=== PATIENT | male | born 1960 | race Caucasian/White ===

== ENCOUNTER → 2018-08-23 | Outpatient (CLI) | payer OTHER, MEDICAID ==
[~2018-08-23] MED LIST: BACTROBAN15 GM TP; CIPROFLOXACIN500 M1 PO; DEPAKENE250 MG; DEPAKENE250 MG PO; DILANTIN100 MG; DILANTIN100 MG PO; DOXYCYCLINE 10100 M1 PO; K-DUR10 MEQ PO; KETACONAZOLE TOP; KLOR-CON 1010 MEQ; LAMICTAL 25 MG25 M1; LAMOTRIGINE25 M2 PO; LEVOTHYROXIN0.125 M1; LEVOTHYROXIN0.125 M1 PO; LISINOPRIL-HCT1 EAC2; LISINOPRIL-HCT1 EAC2 PO; OXYBUTYNIN 5 MG5 M1; OXYBUTYNIN 5 MG5 M1 PO; PRIMIDONE50 MG; PRIMIDONE50 MG PO; PYRIDIUM100 M1 PO; VITAMIN B-12500 MCG; VITAMIN B-12500 MCG PO; VYTORIN 10-801 EACH; VYTORIN 10-801 EACH PO; [UNRECOGNIZED DRUG - OTHER]; [UNRECOGNIZED DRUG - OTHER] PO
== END ==
LOC: M.MRI 08-15 14:30
DX: M79.602 Pain in left arm (principal)

== ENCOUNTER 2019-05-15 12:44 | Emergency (ER) | payer OTHER, MEDICAID ==
[~2019-05-15] VITALS: Ht 170.2 cm; Wt 117.9 kg
[2019-05-15] MEDS ORDERED: SIMVASTATIN80 MG PO (12:53)
[2019-05-15 13:21] LABS: ABSOLUTE BASOPHILS 0.1 thou/uL (0.0-0.2); ABSOLUTE MONOCYTES 0.8 thou/uL (0.0-1.2); BASOPHILS 1.3 %; EOSINOPHILS 0.3 %; HEMATOCRIT 37.1 % (42.0-52.0); HEMOGLOBIN 13.2 gm/dL (14.0-18.0); LYMPHOCYTES 20.4 %; MCH 30.1 pg (26.0-34.0); MCHC 35.6 g/dL (28.0-37.0); MCV 84.6 fL (80.0-100.0); MONOCYTES 16.7 %; MPV 8.2 fl. (7.2-11.1); NUCLEATED RBCS 0 /100WBC; PLATELET COUNT* 132 thou/uL (150-400); POLYS 61.3 %; RBC 4.39 mil/uL (4.50-6.00); RDW-CV 13.2 % (10.5-14.5); WBC 4.9 thou/uL (4.0-11.0)
[2019-05-15 13:29] LABS: CREATININE 1.2 mg/dL (0.6-1.3); POTASSIUM 3.5 mmol/L (3.5-5.1)
[2019-05-15 13:34] LABS: ALBUMIN 3.1 g/dL (3.4-5.0); TOTAL BILIRUBIN 0.4 mg/dL (<0.1-1.0); TOTAL PROTEIN 6.6 g/dL (6.4-8.2)
[2019-05-15 13:45] LABS: URINE BILIRUBIN NEGATIVE (Negative); URINE BLOOD NEGATIVE (Negative); URINE CLARITY CLEAR; URINE COLOR YELLOW; URINE GLUCOSE-RANDOM NEGATIVE (Negative); URINE KETONES NEGATIVE (Negative); URINE LEUKOCYTES-REFLEX NEGATIVE (Negative); URINE NITRITE-REFLEX NEGATIVE (Negative); URINE PROTEIN NEGATIVE (Negative); URINE UROBILINOGEN 0.2 E.U./dl (0.2-1.0)
--- NOTE | 2019-05-15 14:35 | EKG ---
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1960 Requested By: Dalton Viera Order Number: [id number] MD: Carlos Blakely Measurements Intervals [place] Rate: 76 P: 59 [place]: 148 QRS: 9 QRSD: 83 T: 76 QT: 369 QTc: 415 Interpretive Statements Sinus rhythm Abnormal R-wave progression, early transition Nonspecific T abnormalities, lateral leads Compared to ECG 03/04/2009 11:41:57 T-wave abnormality now present Electronically Signed On 05-15-2019 14:35:10 PROGRAM FACILITATOR by Carlos Blakely [email or web address] <ELECTRONICALLY SIGNED> By: Carlos Blakely MD, [facility] 05/15/19 1435 15 15 Carlos Blakely MD, FAC /EPI
[2019-05-15] MEDS ORDERED: MECLIZINE HCL25 M1 PO (16:16)
[2019-05-15 16:29] VITALS: BP 112/66
== END 2019-05-15 16:30 | disposition home or self-care (01) ==
LOC: M.ERS 12:44
PROVIDERS: Physician Assistant
DX: R42 Dizziness and giddiness (principal); I10 Essential (primary) hypertension; E78.5 Hyperlipidemia, unspecified; E03.9 Hypothyroidism, unspecified; Z86.73 Personal history of transient ischemic attack (TIA), and cerebral infarction without residual deficits

== ENCOUNTER 2019-05-22 21:34 | Inpatient (IN) | payer OTHER, MEDICAID ==
[~2019-05-22] VITALS: Ht 170.2 cm; Wt 117.9 kg
[~2019-05-22 21:34] MED LIST changes: +MECLIZINE HCL25 M1 PO; +SIMVASTATIN80 MG PO
[2019-05-22 21:35] VITALS: BP 110/63
[2019-05-22 22:57] LABS: ABSOLUTE NEUTROPHILS 3.2 thou/uL (1.6-8.1); BASOPHILS 0.9 %; EOSINOPHILS 0.2 %; HEMATOCRIT 37.8 % (42.0-52.0); HEMOGLOBIN 13.4 gm/dL (14.0-18.0); LYMPHOCYTES 19.1 %; MCH 30.2 pg (26.0-34.0); MCHC 35.4 g/dL (28.0-37.0); MCV 85.3 fL (80.0-100.0); MONOCYTES 18.6 %; MPV 8.2 fl. (7.2-11.1); NUCLEATED RBCS 0 /100WBC; PLATELET COUNT* 128 thou/uL (150-400); POLYS 61.2 %; RBC 4.43 mil/uL (4.50-6.00); RDW-CV 13.2 % (10.5-14.5); WBC 5.2 thou/uL (4.0-11.0)
[2019-05-22 23:05] LABS: CREATININE 1.3 mg/dL (0.6-1.3); POTASSIUM 3.6 mmol/L (3.5-5.1)
[2019-05-22 23:10] LABS: ALBUMIN 3.2 g/dL (3.4-5.0); TOTAL BILIRUBIN 0.4 mg/dL (<0.1-1.0); TOTAL PROTEIN 7.1 g/dL (6.4-8.2)
[2019-05-22 23:15] LABS: URINE BILIRUBIN NEGATIVE (Negative); URINE BLOOD NEGATIVE (Negative); URINE CLARITY CLEAR; URINE COLOR YELLOW; URINE GLUCOSE-RANDOM NEGATIVE (Negative); URINE KETONES NEGATIVE (Negative); URINE LEUKOCYTES-REFLEX NEGATIVE (Negative); URINE NITRITE-REFLEX NEGATIVE (Negative); URINE PROTEIN NEGATIVE (Negative)
[2019-05-23] VITALS (7 sets, daily range): BP systolic 103–137; BP diastolic 56–66
[2019-05-23 05:43] LABS: ALBUMIN 2.9 g/dL (3.4-5.0); CALCIUM 8.2 mg/dL (8.5-10.1); CREATININE 1.1 mg/dL (0.6-1.3); POTASSIUM 3.6 mmol/L (3.5-5.1); TOTAL BILIRUBIN 0.4 mg/dL (<0.1-1.0); TOTAL PROTEIN 6.7 g/dL (6.4-8.2)
--- NOTE | 2019-05-23 06:19 | NUR ---
PATIENT ARRIVED TO UNIT AT APPROX 0100. ALERT AND OREINTED X4. ADMISSION HISTORY AND ASSESSMENT COMPLETED AND CHARTED. VSS ON ROOM AIR. NO COMPLAINTS THROUGHOUT THE NIGHT. FLUIDS INFUSED ORDERED. PATIENT ORDERED BEDREST FOR UNSTEADY GAIT, USING URINAL FROM THE BED. FALL PRECAUTIONS IN PLACE. CALL LIGHT WITHIN REACH. HOULRY ROUNDS COMPLETED. WILL CONTNUE TO MONITOR.
--- NOTE | 2019-05-23 11:51 | NUR ---
ASSUMED PT CARE AT 0800, AOX4, BEDREST, USES URINAL. PT MED SURG. PT DENIES PAIN. IVF INFUSSING ORDERED. VSS, AM ASSESSMENT CHARTED, HOURLY ROUNDING, WILL CONTINUE TO MONITOR.
--- NOTE | 2019-05-23 12:46 | NUR ---
Pt is A&O. Resides at home with his mom. Independent. No DME. Hx of [facility]. No hx of SNF. Goal is home at dc, Pt said he may need HH. Following.
--- NOTE | 2019-05-23 15:29 | NUR ---
PT TRANSFERRED TO ROOM 109, I AGREE WITH PREVIOUS ASSESSMENT. PT SETTLED INTO ROOM, ORIENTED TO CALL LIGHT, BED CONTROLS AND FALL PRECAUTIONS. PT DENIES FEELING DIZZY AT THIS TIME. IV FLUIDS HAVE BEEN DC'D AND HE IS NOW ON A 1000CC FLUID RESTRICTION. BED IS LOW AND LOCKED, BED ALARM SET AND PT INSTRUCTED TO CALL FOR HELP WHEN NEEDED.
[2019-05-24 03:17] LABS: HEMATOCRIT 36.8 % (42.0-52.0); HEMOGLOBIN 12.9 gm/dL (14.0-18.0); MCHC 35.1 g/dL (28.0-37.0); MCV 85.3 fL (80.0-100.0); MPV 8.7 fl. (7.2-11.1); RBC 4.31 mil/uL (4.50-6.00); RDW-CV 13.3 % (10.5-14.5); WBC 5.7 thou/uL (4.0-11.0)
[2019-05-24 03:20] LABS: CALCIUM 8.2 mg/dL (8.5-10.1)
--- NOTE | 2019-05-24 04:26 | NUR ---
PT SLEEPING THROUGH THE NIGHT. A&O, VSS ON RA. PT UP WITH MINIMUM ASSIST TO USE URINAL. FLUID RESTRICTION MAINTAINED. HOURLY ROUNDING COMPLETED. WILL CONTINUE TO MONITOR.
[2019-05-24 08:15] VITALS: BP 128/58
[2019-05-24 16:30] VITALS: BP 125/74
--- NOTE | 2019-05-24 18:04 | NUR ---
PATIENT ALERT AND ORIENTED X 4. FORGETFUL AT TIMES. VITAL SIGNS STABLE ON ROOM AIR. USING THE URINAL WITH ASSISTANCE. IV PATENT AND SALINE LOCKED. DENIES PAIN AND NAUSEA AT THIS TIME. FALL PRECAUTIONS IN PLACE AND BED ALARM ON. HOURLY ROUNDS MAINTAINED THROUGHOUT THE SHIFT. CALL LIGHT WITHIN REACH. NURSING WILL CONTINUE TO MONITOR.
[2019-05-24 20:34] VITALS: BP 116/67
[2019-05-25 04:48] LABS: CALCIUM 8.2 mg/dL (8.5-10.1); POTASSIUM 4.5 mmol/L (3.5-5.1)
--- NOTE | 2019-05-25 05:15 | NUR ---
SODIUM CURRENTLY 133. STILL ON FLUID RESTRICTION OF 1750 MLS. HE CAN STAND AT BEDSIDE TO USE URINAL. PATIENT SLEPT ALL NIGHT WITHOUT ANY ISSUES. PLAN IS TO STABILIZE SODIUM LEVELS. WILL CONTINUE TO FOLLOW PLAN OF CARE.
[2019-05-25 08:20] VITALS: BP 99/54
[2019-05-25 16:13] VITALS: BP 98/56
--- NOTE | 2019-05-25 17:26 | NUR ---
PT A&Ox4. VITALS STABLE. IV PATENT. UP STAND BY. DENIED PAIN. DENIED N/V. TOLERATING DIET. CALL LIGHT WITHIN REACH. WILL CONTINUE TO MONITOR.
[2019-05-25 20:18] VITALS: BP 119/63
[2019-05-26 03:50] LABS: CREATININE 1.1 mg/dL (0.6-1.3)
--- NOTE | 2019-05-26 05:45 | NUR ---
PATIENT WAS ABLE TO AMBULATE HALLWAYS BEFORE BED. DID NOT REPORT ANY PAIN OR NAUSEA. WAS ABLE TO SLEEP ALL NIGHT. TOOK ALL MEDS PRESCRIBED. WILL CONTINUE TO FOLLOW PLAN OF CARE.
[2019-05-26 08:03] VITALS: BP 121/71
[2019-05-26 10:26] VITALS: BP 121/71
--- NOTE | 2019-05-26 13:22 | NUR ---
PT DISCHARGED ABOUT 1310 TO HOME BY WHEELCHAIR WITH FRIEND AND NURSING STAFF. IV OUT. PT STABLE. NO PRESCRIPTIONS. PERSONAL ITEMS SENT WITH PT.
== END 2019-05-26 13:24 | disposition home or self-care (01) | DRG 149 ==
LOC: M.ERS 21:34 → M.TBA-ER 05-23 00:09 → M.2W 05-23 00:09 → M.ORTHSURG 05-23 15:16
PROVIDERS: Family Medicine; Personal Emergency Response Attendant; ADMIT Family Medicine
DX: H81.10 Benign paroxysmal vertigo, unspecified ear (principal); E87.1 Hypo-osmolality and hyponatremia; Z68.41 Body mass index [BMI] 40.0-44.9, adult; I69.354 Hemiplegia and hemiparesis following cerebral infarction affecting left non-dominant side; G40.909 Epilepsy, unspecified, not intractable, without status epilepticus; I10 Essential (primary) hypertension; G93.89 Other specified disorders of brain; F70 Mild intellectual disabilities; E03.9 Hypothyroidism, unspecified; R27.0 Ataxia, unspecified; E78.5 Hyperlipidemia, unspecified; E66.9 Obesity, unspecified; Z79.899 Other long term (current) drug therapy

== ENCOUNTER 2020-01-14 15:14 | Inpatient (IN) | payer OTHER, MEDICAID ==
[~2020-01-14] VITALS: Ht 170.2 cm; Wt 102.1 kg
[2020-01-14 15:23] VITALS: BP 99/46
[2020-01-14] MEDS ORDERED: VALPROIC ACID250 MG PO (15:26)
[2020-01-14] MEDS ORDERED: OXYBUTYNIN 5 MG5 M2 PO (15:27)
[2020-01-14] MEDS ORDERED: KLOR-CON 1010 MEQ PO (15:28)
[2020-01-14 16:14] LABS: ABSOLUTE BASOPHILS 0.1 thou/uL (0.0-0.2); ABSOLUTE LYMPHOCYTES 1.3 thou/uL (0.8-5.3); ABSOLUTE NEUTROPHILS 2.9 thou/uL (1.6-8.1); EOSINOPHILS 0.1 %; HEMATOCRIT 36.2 % (42.0-52.0); HEMOGLOBIN 12.4 gm/dL (14.0-18.0); LYMPHOCYTES 24.4 %; MCH 30.2 pg (26.0-34.0); MCHC 34.3 g/dL (28.0-37.0); MCV 88.3 fL (80.0-100.0); MONOCYTES 18.8 %; MPV 8.1 fl. (7.2-11.1); NUCLEATED RBCS 0 /100WBC; PLATELET COUNT* 75 thou/uL (150-400); POLYS 55.7 %; RDW-CV 14.4 % (10.5-14.5); WBC 5.2 thou/uL (4.0-11.0)
[2020-01-14 16:21] LABS: CALCIUM 8.8 mg/dL (8.5-10.1); CREATININE 2.1 mg/dL (0.6-1.3); POTASSIUM 3.4 mmol/L (3.5-5.1)
[2020-01-14 16:26] LABS: APTT 23.6 Seconds (25.0-31.3); PROTIME 10.6 Seconds (9.20-11.50)
[2020-01-14 16:32] LABS: ALBUMIN 3.4 g/dL (3.4-5.0); TOTAL BILIRUBIN 0.4 mg/dL (<0.1-1.0); TOTAL PROTEIN 7.4 g/dL (6.4-8.2)
[2020-01-14 17:33] LABS: URINE BILIRUBIN NEGATIVE (Negative); URINE BLOOD NEGATIVE (Negative); URINE CLARITY CLEAR; URINE COLOR YELLOW; URINE GLUCOSE-RANDOM NEGATIVE (Negative); URINE KETONES NEGATIVE (Negative); URINE LEUKOCYTES-REFLEX NEGATIVE (Negative); URINE NITRITE-REFLEX NEGATIVE (Negative); URINE PROTEIN NEGATIVE (Negative); URINE SPECIFIC GRAVITY 1.015 (1.005-1.030); URINE UROBILINOGEN 0.2 E.U./dl (0.2-1.0)
[2020-01-14 21:00] VITALS: BP 122/56
[2020-01-14 21:05] VITALS: BP 109/54
[2020-01-15 08:00] VITALS: BP 116/58
[2020-01-15 08:36] LABS: CALCIUM 8.2 mg/dL (8.5-10.1); CREATININE 1.4 mg/dL (0.6-1.3); MAGNESIUM 2.1 mg/dL (1.8-2.4); POTASSIUM 3.1 mmol/L (3.5-5.1)
[2020-01-15 16:45] VITALS: BP 102/66
--- NOTE | 2020-01-15 17:08 | EKG ---
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: : 1960 Requested By: Herb Hawthorne Order Number: [id number] MD: Sanju Stinson Measurements Intervals [place] Rate: 77 P: 58 [place]: 139 QRS: 1 QRSD: 87 T: 73 QT: 387 QTc: 438 Interpretive Statements Sinus rhythm Low voltage, precordial leads Abnormal R-wave progression, early transition Compared to ECG 05/15/2019 13:16:30 Low QRS voltage now present T-wave abnormality no longer present Electronically Signed On 01-15-2020 17:08:09 CDT by Sanju Stinson [email or web address] <ELECTRONICALLY SIGNED> By: Sanju Stinson MD, [facility] 01/15/20 1708 1557 1557 Sanju Stinson MD, [facility] /EPI
[2020-01-15 19:50] VITALS: BP 126/61
[2020-01-16 01:58] LABS: URINE POTASSIUM-RANDOM 12.9 mmol/L
[2020-01-16 08:13] VITALS: BP 110/55
[2020-01-16 10:18] LABS: CALCIUM 8.4 mg/dL (8.5-10.1); CREATININE 1.5 mg/dL (0.6-1.3)
[2020-01-16 15:39] VITALS: BP 94/58
[2020-01-16 20:00] VITALS: BP 109/59
[2020-01-17 04:00] LABS: HEMATOCRIT 31.6 % (42.0-52.0); MCH 30.9 pg (26.0-34.0); MCHC 34.9 g/dL (28.0-37.0); MCV 88.4 fL (80.0-100.0); NUCLEATED RBCS 0 /100WBC; PLATELET COUNT* 51 thou/uL (150-400); RBC 3.57 mil/uL (4.50-6.00); RDW-CV 14.5 % (10.5-14.5); WBC 4.8 thou/uL (4.0-11.0)
[2020-01-17 04:13] LABS: CALCIUM 8.3 mg/dL (8.5-10.1); CREATININE 1.3 mg/dL (0.6-1.3); MAGNESIUM 1.8 mg/dL (1.8-2.4); POTASSIUM 4.1 mmol/L (3.5-5.1)
[2020-01-17 06:26] LABS: ABSOLUTE LYMPHOCYTES 2.2 thou/uL (0.8-5.3); ABSOLUTE MONOCYTES 0.5 thou/uL (0.0-1.2); ABSOLUTE NEUTROPHILS 2.1 thou/uL (1.6-8.1); METAMYELOCYTES 2 %
[2020-01-17 06:27] LABS: PLATELET ESTIMATE DECREASED
[2020-01-17 06:28] LABS: TOXIC GRANULATION 1+
[2020-01-17 07:37] VITALS: BP 113/45
[2020-01-17] MEDS ORDERED: FOLIC ACID1 MG PO (07:42)
[2020-01-17] MEDS ORDERED: HYDROCHLOROTHIA25 M2 PO (07:42)
[2020-01-17 14:25] VITALS: BP 113/45
[2020-01-17 14:32] VITALS: BP 113/45
[2020-01-17 15:32] VITALS: BP 113/45
== END 2020-01-17 15:34 | disposition home health service (06) | DRG 683 ==
LOC: M.ERS 15:14 → M.3W 19:12 → M.TBA-ER 19:12 → M.3W 21:10
PROVIDERS: Emergency Medicine Emergency Medical Services; Internal Medicine; Nurse Practitioner Family; ADMIT Family Medicine; ATTEND Family Medicine
DX: N17.0 Acute kidney failure with tubular necrosis (principal); E87.1 Hypo-osmolality and hyponatremia; I95.2 Hypotension due to drugs; E03.9 Hypothyroidism, unspecified; E78.5 Hyperlipidemia, unspecified; I10 Essential (primary) hypertension; E66.9 Obesity, unspecified; E87.6 Hypokalemia; R91.1 Solitary pulmonary nodule; F79 Unspecified intellectual disabilities; G40.909 Epilepsy, unspecified, not intractable, without status epilepticus; D69.6 Thrombocytopenia, unspecified; T46.4X5A Adverse effect of angiotensin-converting-enzyme inhibitors, initial encounter; E53.8 Deficiency of other specified B group vitamins; Z20.828 Contact with and (suspected) exposure to other viral communicable diseases; Z68.35 Body mass index [BMI] 35.0-35.9, adult; Z86.73 Personal history of transient ischemic attack (TIA), and cerebral infarction without residual deficits; Y92.89 Other specified places as the place of occurrence of the external cause; Z23 Encounter for immunization; Z79.899 Other long term (current) drug therapy

== ENCOUNTER 2020-02-04 10:48 | Inpatient (IN) | payer OTHER, MEDICAID ==
[~2020-02-04] VITALS: Ht 175.3 cm; Wt 100.7 kg
--- NOTE | ~2020-02-04 | EEG ---
[address] [address] EEG STUDY REPORT Name: JANELLE MATHEW Room: [address] IN .R.#: [id number] Admission: 02/04/20 Attend Phys: Artur Gagnon MD Discharge: Date of : 62 Report #: [id number] THIS REPORT FOR: //name// CC: Artur Martell This patient is being evaluated for seizure disorder. EEG was done by placing the electrode by standard 10-20 system of electrode placement. Both referential and sequential montages were used for recording. Background activity is intermixed with a lot of artifact. It does appear to show background activity up to about 8-9 Hz and 30 microvolt. The patient goes to sleep and that is associated with bilateral slowing and vertex sharp waves. Throughout the record, no active epileptiform activity was noticed. IMPRESSION: This patient's EEG is intermixed with a lot of artifact and therefore it is difficult to evaluate. However, it does not appear to be showing any active epileptiform activity. Clinical correlation is recommended because EEG can be normal in a patient with seizure disorder. Thank you very much for this referral. By: 0853 [id number] García MD /nt
[~2020-02-04 10:48] MED LIST changes: +FOLIC ACID1 MG PO; +HYDROCHLOROTHIA25 M2 PO; +KLOR-CON 1010 MEQ PO; +OXYBUTYNIN 5 MG5 M2 PO; +VALPROIC ACID250 MG PO
[2020-02-04 10:50] VITALS: BP 147/60
[2020-02-04] MEDS ORDERED: FOLIC ACID1 MG PO (11:05)
[2020-02-04] MEDS ORDERED: HYDROCHLOROTHIA25 M1 PO (11:06)
[2020-02-04] MEDS ORDERED: LAMOTRIGINE250 MG PO (11:06)
[2020-02-04] MEDS ORDERED: PHENYTOIN (11:07)
[2020-02-04] MEDS ORDERED: TIROSINT125 MCG PO (11:08)
[2020-02-04] MEDS ORDERED: VALPROIC ACID250 MG PO (11:08)
[2020-02-04] MEDS ORDERED: MYSOLINE50 MG PO (11:08)
[2020-02-04] MEDS ORDERED: OXYBUTYNIN 5 MG5 M2 PO (11:09)
[2020-02-04] MEDS ORDERED: KLOR-CON 10 ER10 MEQ PO (11:09)
[2020-02-04 11:56] LABS: HEMATOCRIT 34.1 % (42.0-52.0); HEMOGLOBIN 11.6 gm/dL (14.0-18.0); MCH 30.1 pg (26.0-34.0); MCV 88.5 fL (80.0-100.0); MPV 7.4 fl. (7.2-11.1); NUCLEATED RBCS 0 /100WBC; PLATELET COUNT* 70 thou/uL (150-400); RBC 3.85 mil/uL (4.50-6.00); RDW-CV 14.5 % (10.5-14.5); WBC 6.1 thou/uL (4.0-11.0)
[2020-02-04 12:07] LABS: CALCIUM 7.9 mg/dL (8.5-10.1); CREATININE 1.2 mg/dL (0.6-1.3)
[2020-02-04 12:08] LABS: POTASSIUM 2.8 mmol/L (3.5-5.1)
[2020-02-04 12:11] LABS: ALBUMIN 2.7 g/dL (3.4-5.0); TOTAL BILIRUBIN 0.4 mg/dL (<0.1-1.0); TOTAL PROTEIN 6.8 g/dL (6.4-8.2)
[2020-02-04 12:20] LABS: ABSOLUTE LYMPHOCYTES 1.4 thou/uL (0.8-5.3); ABSOLUTE MONOCYTES 1.6 thou/uL (0.0-1.2); ABSOLUTE NEUTROPHILS 3.1 thou/uL (1.6-8.1); PLATELET ESTIMATE DECREASED
[2020-02-04 14:05] LABS: URINE BILIRUBIN NEGATIVE (Negative); URINE BLOOD NEGATIVE (Negative); URINE CLARITY CLEAR; URINE COLOR YELLOW; URINE GLUCOSE-RANDOM NEGATIVE (Negative); URINE KETONES TRACE (Negative); URINE LEUKOCYTES-REFLEX NEGATIVE (Negative); URINE NITRITE-REFLEX NEGATIVE (Negative); URINE PROTEIN NEGATIVE (Negative); URINE SPECIFIC GRAVITY 1.015 (1.005-1.030); URINE UROBILINOGEN >= 8.0 E.U./dl (0.2-1.0)
--- NOTE | 2020-02-04 14:32 | EKG ---
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 : 1960 Requested By: Herb Hawthorne Order Number: [id number] MD: Carlos Blakely Measurements Intervals [place] Rate: 76 P: 63 [place]: 141 QRS: 1 QRSD: 83 T: 149 QT: 371 QTc: 418 Interpretive Statements Sinus rhythm artifact noted Low voltage, precordial leads Abnormal R-wave progression, early transition Nonspecific T abnormalities, lateral leads Compared to ECG 01/14/2020 15:57:30 no change Electronically Signed On 02-04-2020 14:31:59 CDT by Carlos Blakely [email or web address] <ELECTRONICALLY SIGNED> By: Carlos Blakely MD, FACC 02/04/20 1431 1054 1054 Carlos Blakely MD, FACC /EPI
[2020-02-04 15:26] VITALS: BP 144/69
[2020-02-04 16:17] VITALS: BP 175/99
[2020-02-04] MEDS ORDERED: lamotrigine PO (16:47)
[2020-02-04] MEDS ORDERED: PHENYTOIN PO (16:48)
--- NOTE | 2020-02-04 18:02 | NUR ---
PATIENT ADMITTED TO ROOM 212 FROM ER. ALERT AND ORIENTED. PATIENT LIVES AT HOME WITH MOTHER. PATIENT IS SLOW TO SPEAK AND ANSWER. IV POTASSIUM INFUSING X 2ND BAG. ABRASION NOTED TO FORHEAD, PHOTO TAKEN PER PROTOCOL. FALL RISK PROTOCOL. BED ALARM ON FOR PATIENT SAFETY. SPOKE WITH PATIENTS MOM THIS EVENING REGARDING MED LIST, CLARIFIED VALPRIOC ACID DOSE WITH PATIENTS PHARMACY AND DR. WILKINS NOTIFIED.
[2020-02-04 20:28] VITALS: BP 122/75
[2020-02-05 00:03] VITALS: BP 111/55
[2020-02-05 04:24] VITALS: BP 116/61
[2020-02-05 07:05] LABS: ABSOLUTE LYMPHOCYTES 1.3 thou/uL (0.8-5.3); ABSOLUTE NEUTROPHILS 2.3 thou/uL (1.6-8.1); BASOPHILS 0.3 %; EOSINOPHILS 0.3 %; HEMATOCRIT 34.2 % (42.0-52.0); HEMOGLOBIN 11.7 gm/dL (14.0-18.0); LYMPHOCYTES 27.4 %; MCH 30.3 pg (26.0-34.0); MCHC 34.2 g/dL (28.0-37.0); MCV 88.5 fL (80.0-100.0); MONOCYTES 21.7 %; MPV 8.1 fl. (7.2-11.1); NUCLEATED RBCS 0 /100WBC; PLATELET COUNT* 72 thou/uL (150-400); POLYS 50.3 %; RBC 3.86 mil/uL (4.50-6.00); RDW-CV 14.4 % (10.5-14.5); WBC 4.6 thou/uL (4.0-11.0)
[2020-02-05 07:24] LABS: CALCIUM 8.1 mg/dL (8.5-10.1); POTASSIUM 3.7 mmol/L (3.5-5.1)
[2020-02-05 08:00] VITALS: BP 107/59
--- NOTE | 2020-02-05 08:31 | NUR ---
PT IS ABLE TO COMMUNICATE HIS NEEDS TO STAFF WITH SOME DIFFICULTY; HE IS COGNITIVELY DELAYED AND CONFUSED AT TIMES; HE REQUIRES SOME ADDITIONAL TIME TO RESPOND. HE HAS DENIED THE NEED FOR PAIN MEDICATION UP UNTIL 0700 THIS MORNING. SEIZURE PRECAUTIONS MAINTAINED DURING CLAIM REVIEW MEDICAL DIRECTOR. NEUROLOGY IS FOLLOWING. MOTHER NEEDS TO BE ASKED IF HE SHOULD GET A FLU SHOT UPON DISCHARGE.
[2020-02-05 11:30] VITALS: BP 122/59
--- NOTE | 2020-02-05 14:35 | NUR ---
CM spoke with Pt's brother via phone. Pt resides at home with his 90 year old mom. Per brother, Pt has had increasing amounts of falls at home over the past 1.5 months. Mom is having a hard time managing Pt at home. Per brother, mom is having to physically feed Pt. Brother lives about 3 miles away and is available to assist if needed. Pt is normally active and independent. Pt uses a walker for mobility. No hx of SNF. Brother thinks that Pt may need SN[place]. Therapies to eval. Neuro consulted. Following for dispo plans
[2020-02-05 16:00] VITALS: BP 128/65
--- NOTE | 2020-02-05 18:51 | CON ---
[address] [address] CONSULTATION Name: JANELLE MATHEW Room: [address] IN M.R.#: [id number] Admission: 02/04/20 Attend Phys: Artur Gagnon MD Discharge: Date of : 62 Report #: [id number] THIS REPORT FOR: //name// cc: Doreen Martell Maggie M. DO ~ THIS REPORT FOR: //name// DATE OF SERVICE: 02/05/2020 HISTORY OF PRESENT ILLNESS: This is a 59-year-old male patient who is well known to me for a long time. He used to come to my office for seizure, but I have not seen him for some time. He has always been a poor historian. His mother usually comes with him, but she was not here today when I saw him. He does not appear to be well oriented and cannot give me any history. He keeps wandering off from the subject. I reviewed the patient's records and he was admitted with a fall. It looks like he did hit his head, but did a CT scan of the head and C-spine in the Emergency Room and that does not appear to be showing any acute abnormality. This patient has a pretty significant abnormality of the brain in the baseline and that is present, but no acute abnormality is present. It is not clear if he had any seizures he says and the records indicate that basically he does not feel himself and both mentally and physically he is slow than his baseline. REVIEW OF SYSTEMS: A 14-point review of system was carried out in this patient. I have seen him for a long time. This patient has mental retardation. He has a pretty significantly abnormal brain. Presently he is thrombocytopenic, does have some hypokalemia, dysuria, dizziness, dehydration. He has a longstanding ataxia. When he came in, his potassium was very low at 2.8. It is better now. The patient does not tell me whether he is better or not. A 14-point review of system was carried out as I can tell from my previous recollection. He has a history of seizure encephalomalacia, mental retardation, hypothyroidism, hypertension and obesity. That has not changed. PAST MEDICAL HISTORY: Positive for seizure and mental retardation. FAMILY HISTORY: Unremarkable. SOCIAL HISTORY: He does not smoke or drink alcohol. PHYSICAL EXAMINATION: Indicate he is alert. He does have a speech, but when I asked him what month it is he does not tell me and keeps talking irrelevantly. He does remember that he has a longstanding history of seizure. Cranial nerve examination 2-12 was attempted, very difficult to carry out in this patient, but I do not see any focality. He moves all four extremities, but he does not cooperate with strength and sensation, he will not relax for reflexes or tone either. He does have a problem with [id number]-[id number] and gpma-qb-lsxr. He did [facility] [address] [place] [address] CONSULTATION Name: JANELLE MATHEW Room: [address]#: [id number] Admission: 02/04/20 Attend Phys: Artur Gagnon MD Discharge: Date of : 62 Report #: [id number] not cooperate with the fundus examination. He is moderately obese individual who is a well-built and does not have any dysmorphic features of eyes, ears and face. I believe his vision and hearing is okay. He does not have any evidence of vascular insufficiency in the lower extremities. There is no edema. There is no thyroid mass. There is no carotid bruit. He does not have any respiratory difficulty or rhonchi. His heart examination looks unremarkable. Blood pressure is 107/59, respirations 14, pulse is 72, temperature is 98.3. LABORATORY DATA: Indicated white count of 4.6. one time his blood sugar was 67. IMPRESSION: This patient has a longstanding history of seizure. He also has multiple neurological feature, which has been there for a long time and he has pretty significantly abnormal CT of the brain. I think his weakness may have been secondary to low potassium. I will check his Dilantin level. His medications need to be changed. He has a low platelet so neither Depakote or Dilantin is a good medicine for him. He is on the lower dose of lamotrigine. I will increase it somewhat, but ultimately that needs to be billed up and his Depakote and Dilantin need to be tapered off. He needs to follow up with us as an outpatient to do that. I discussed all of it with the patient. I discussed the patient with Dr. Gagnon and we will try to talk to the patient's . Thank you very much for this referral. <ELECTRONICALLY SIGNED> By: Elliott García MD 02/05/20 1851 1135 1220Elliott García MD /nt
[2020-02-05 20:55] VITALS: BP 119/57
[2020-02-06] VITALS (8 sets, daily range): BP systolic 99–147; BP diastolic 51–74
[2020-02-06 04:50] LABS: HEMATOCRIT 33.4 % (42.0-52.0); HEMOGLOBIN 11.5 gm/dL (14.0-18.0); MCH 30.3 pg (26.0-34.0); MCHC 34.3 g/dL (28.0-37.0); MCV 88.4 fL (80.0-100.0); MPV 7.9 fl. (7.2-11.1); NUCLEATED RBCS 0 /100WBC; PLATELET COUNT* 68 thou/uL (150-400); RBC 3.78 mil/uL (4.50-6.00); RDW-CV 14.4 % (10.5-14.5); WBC 4.1 thou/uL (4.0-11.0)
[2020-02-06 05:44] LABS: CREATININE 1.1 mg/dL (0.6-1.3); POTASSIUM 3.7 mmol/L (3.5-5.1)
[2020-02-06 05:51] LABS: ABSOLUTE MONOCYTES 0.5 thou/uL (0.0-1.2); ABSOLUTE NEUTROPHILS 2.6 thou/uL (1.6-8.1)
[2020-02-06 05:52] LABS: ANISOCYTOSIS 1+; PLATELET ESTIMATE DECREASED; POIKILOCYTOSIS 1+
--- NOTE | 2020-02-06 07:53 | NUR ---
PT IS ABLE TO COMMUNICATE HIS NEEDS TO STAFF WITH SOME DIFFICULTY; HE IS COGNITIVELY DELAYED, CONFUSED AT TIMES, AND OFTEN REQUIRES SOME ADDITIONAL TIME TO RESPOND. HE HAS DENIED THE NEED FOR PAIN MEDICATION UP TO 0700 THIS MORNING. SEIZURE PRECAUTIONS MAINTAINED.
--- NOTE | 2020-02-06 09:43 | NUR ---
RECIEVED REPORT AROUND 714. ASSUMED CARE. VS AND ASSESSMENT CHARTED. IV INTACT LEFT AC. ABX RUNNING. PT LYING IN BED. MEDS GIVEN THIS AM PER JUN. PT REFUSED FLU SHOT. PT STATED "NO" TO ANY PAIN. CALL LIGHT WITHIN REACH. WILL CONTINUE TO MONITOR.
--- NOTE | 2020-02-06 15:29 | NUR ---
Pt will need SNF at [place]. CM to contact brother re: SNF choice, left message, await call back. Per PT, Pt's BP drops when up. Neuro following.
--- NOTE | 2020-02-06 18:35 | NUR ---
NO NEW CHANGES FROM MORNING ASSESSMENT. PT LYING IN BED. PHYSICAL THERAPY WORKED WITH PT. REPORTED SOME LIGHTHEADEDNESS WHEN AMBULATED. DR NOTIFIED. ADDED ORTHOS. ORTHOS PER CHART. MEDICATION PER JUN. HOURLY ROUNDING PERFORMED. IV INTACT. LEFT AC. SALINE LOCK. HEART MONITOR ATTACHED SR. CALL LIGHT WITHIN REACH. WILL CONTINUE TO MONITOR.
[2020-02-07] VITALS: BP 141/59
[2020-02-07 04:00] VITALS: BP 121/69
--- NOTE | 2020-02-07 05:44 | NUR ---
PT IS ABLE TO COMMUNICATE HIS NEEDS TO STAFF WITH SOME DIFFICULTY; HE IS COGNITIVELY DELAYED, CONFUSED AT TIMES, AND OFTEN REQUIRES ADDITIONAL TIME TO RESPOND. HE HAS DENIED THE NEED FOR PAIN MEDICATION UP TO THIS TIME. SEIZURE PRECAUTIONS MAINTAINED. HE HAS BEEN QUITE UNSTEADY WHEN UP.
[2020-02-07 08:00] VITALS: BP 124/60
[2020-02-07] MEDS ORDERED: LEVOFLOXACIN500 MG PO (08:17)
[2020-02-07] MEDS ORDERED: LAMOTRIGINE25 MG PO (08:17)
[2020-02-07] MEDS ORDERED: HYDROCHLOROTH12.5 M1 PO (08:17)
[2020-02-07 11:44] VITALS: BP 139/67
--- NOTE | 2020-02-07 13:55 | NUR ---
Pt medically stable to [place]. [facility] declined Pt, faxed referrals to [facility] and SNF. Will need insurance auth. Updated Pt's brother of POC, brother in agreement. OT to see today, Pt was varianced yesterday. Pt will need a rapid covid test at [place].
[2020-02-07 15:54] VITALS: BP 127/65
--- NOTE | 2020-02-07 18:57 | NUR ---
ASSUMED PT CARE AT 0730, PT AOX2, CONFUSED AND DOESN'T USUALLY ANSWER QUESTIONS APPROPRIATELY, PT HAS COG DELAY. PT BEING TURNED Q2H AND GOT UP TO CHAIR TODAY. PT WORKED W/ CM ON POSSIBLE DC TODAY, WAITING FOR INSURANCE AUTH. PT GOAL IS TO REMAIN FREE FROM SKIN BREAKDOWN. AM ASSESSMENT CHARTED, MEDS PER MAR, HOURLY ROUNDING OBSERVED, FALL PRECAUTIONS IN PLACE, CALL LIGHT W/IN REACH.
[2020-02-07 19:40] VITALS: BP 146/78
[2020-02-08] VITALS: BP 127/70
--- NOTE | 2020-02-08 05:30 | NUR ---
ASSUMED PT'S CARE @ 1930. PT ORIENTED TO PLACE AND LOCATIONS. SOMETIMES DOES NOT RESPOND TO QUESTIONS. VSS ON RA. M/S STATUS. PT SLEPT WELL THIS SHIFT. SEIZURE PRECAUTION IN PLACE. MEDS GIVEN PER EMAR. FALL PRECAUTION IN PLACE. CALL LIGHT WITHIN REACH. HOURLY ROUNDINGS MADE. WILL CONTINUE TO MONITOR.
--- NOTE | 2020-02-08 07:25 | NUR ---
CHANGE OF SHIFT, BEDSIDE REPORT GIVEN PATIENT SEEN AT BEDSIDE, IN BED ASLEEP ASSUMED PATIENT CARE
[2020-02-08 08:00] VITALS: BP 138/71
[2020-02-08 16:00] VITALS: BP 117/65
--- NOTE | 2020-02-08 18:03 | NUR ---
PATIENT TRANSFERRED TO [facility] TO [facility] PERSONAL BELONGINGS SENT REPORT GIVEN TO ELENI RICHARDS
[2020-02-08 20:30] VITALS: BP 134/68
--- NOTE | 2020-02-09 04:36 | NUR ---
PT A&O X 2, VSS ON RA. UP WITH WALKER TO BSC, HAD A LARGE BM. MEDS GIVEN ORDERED. PT TAKES HIS PILLS ONE AT A TIME. SIDE RAILS PADDED FOR SEIZURE PRECAUTIONS. BED ALARM ON FOR SAFETY. HOURLY ROUNDINGS MADE. WILL CONTINUE TO MONITOR.
[2020-02-09 07:41] VITALS: BP 124/59
[2020-02-09 16:05] VITALS: BP 131/68
--- NOTE | 2020-02-09 16:45 | NUR ---
PT UP TO CHAIR. SET UP FOR MEALS. SEIZURE PADS IN PLACE. DENIES PAIN.
[2020-02-09 21:00] VITALS: BP 124/70
[2020-02-10 04:48] LABS: CALCIUM 8.4 mg/dL (8.5-10.1); CREATININE 1.2 mg/dL (0.6-1.3); MAGNESIUM 1.8 mg/dL (1.8-2.4); POTASSIUM 3.4 mmol/L (3.5-5.1)
[2020-02-10 07:15] VITALS: BP 127/65
--- NOTE | 2020-02-10 07:20 | NUR ---
Alert and oriented x 1-2. He was up in the chair at the start of the shift. He was transfer to bed with walker and assist x 1-2. His ppotassium and magnesium was low and doses were given. Vitals are stable. He has slept well.
[2020-02-10 12:28] LABS: MAGNESIUM 1.9 mg/dL (1.8-2.4); POTASSIUM 4.2 mmol/L (3.5-5.1)
[2020-02-10 16:03] VITALS: BP 108/71
--- NOTE | 2020-02-10 16:44 | NUR ---
PT REMAINED ALERT TO SELF AND SITUATION. PT VERY SLOW TO ANSWER. PT UP IN CHAIR MOST OF DAY. PT WORKED WITH THERAPY AND WALKED IN ROOM. PT DENIED ANY PAIN OR NAUSEA THIS SHIFT. FALL RISK PRECAUTIONS IN PLACE. HOURLY ROUNDING COMPLETED. WILL CONTINUE TO MONITOR.
--- NOTE | 2020-02-10 17:01 | NUR ---
[facility] DENIED PT.FOR SNF. [facility] WILL NEED [id number] AND LEVEL TWO SCREENING. WILL BEGIN PAPER WORK.
[2020-02-10 20:00] VITALS: BP 121/64; BP 135/60
--- NOTE | 2020-02-11 04:07 | NUR ---
PT A&O X 2-3. MEDS GIVEN ORDERED. USED URINAL TO VOID. PT SLEEPING THROUGH THE NIGHT. BED ALARMS ON. HOURLY ROUNDINGS MADE. WILL CONTINUE TO MONITOR.
[2020-02-11 07:15] VITALS: BP 135/64
[2020-02-11 15:40] VITALS: BP 118/62
--- NOTE | 2020-02-11 16:46 | NUR ---
SU765J FAXED TO [facility]. PT.WILL ALSO NEED A LEVEL 2 SCREENING FROM [facility]. THIS TAKES APPROX 9 DAYS TO RETURN ONCE SUBMITTED. DISCUSSED WITH . PT.IS STABLE FOR DISCHARGE. WILL DISCHARGE TOMORROW WITH HH TO HOME. NOTIFIED BROTHER,NGUYỄN. HE WAS AGREEABLE. EXPLAINED ABOVE AND TOLD HIM WHEN LEVEL 2 RETURNED FROM [facility] AND V GETS INS.AUTH, PT.COULD GO INTO [facility] FROM HOME FOR SNF STAY.
--- NOTE | 2020-02-11 16:53 | NUR ---
PT REMAINED ALERT X2. PT UP IN CHAIR MOST OF DAY. PT CALLED OUT APPROPRIATELY. FALL RISK PRECAUTIONS IN PLACE. HOURLY ROUNDING COMPLETED. WILL CONTINUE TO MONITOR.
[2020-02-11 20:22] VITALS: BP 132/72
--- NOTE | 2020-02-12 05:27 | NUR ---
PT PIVOTS TO COMMODE. RECEIVED ALL MEDS SCHEDULED. DID NOT REPORT ANY PAIN, NAUSEA OR VOMITING. SOME EDEMA TO LOWER EXTREMETIES SKIN IS INTACT. PT COOPERATIVE.
[2020-02-12 07:10] VITALS: BP 116/60
[2020-02-12 08:47] VITALS: BP 116/60
--- NOTE | 2020-02-12 14:00 | NUR ---
PT.HAS DISCHARGE ORDERS FOR TODAY TO GO HOME WITH HH. DISCUSSED WITH SON,NGUYỄN,ON PHONE. HE SAID HE COULD COME TO PICK HIM UP AT 6PM. 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 DISCUSSED HH. HE SAID HE WAS HAPPY WITH THE ONE HE WENT GUERLINE WITH LAST TIME-[facility] HH. CALLED HH AND SPOKE WITH INTAKE. THEY ACCEPTED PT.BACK ON SERVICE. FAXED DISCHARGE ORDERS AND REFERRAL INFORAMTION TO AT [phone]. SPOKE WITH SACHI/LINDSEY. FAXED HER UPATES ON PT. SHE SAID THEY CANNOT GET AUTH FROM INSURANCE CO FOR SKILLED UNTIL LEVEL 2 SCREEN BACK FROM STATE.
[2020-02-12 14:44] VITALS: BP 116/60
[2020-02-12 16:00] VITALS: BP 124/67
--- NOTE | 2020-02-12 18:31 | NUR ---
PT GIVEN DISCHARGE INFORMATION. IV REMOVED. PT BELONGINGS GATHERED. PT LEFT VIA WHEELCHAIR WITH NURSING STAFF TO HOME WITH HOME HEALTH. FALL RISK PRECAUTIONS IN PLACE. HOURLY ROUNDING COMPLETED.
== END 2020-02-12 18:32 | disposition home health service (06) | DRG 100 ==
LOC: M.ERS 10:48 → M.2W 12:51 → M.TBA-ER 12:51 → M.2W 15:25 → M.ORTHSURG 02-08 18:05
PROVIDERS: Emergency Medicine Emergency Medical Services; Internal Medicine; ADMIT Internal Medicine; ATTEND Internal Medicine
DX: G40.909 Epilepsy, unspecified, not intractable, without status epilepticus (principal); G93.41 Metabolic encephalopathy; J69.0 Pneumonitis due to inhalation of food and vomit; E44.1 Mild protein-calorie malnutrition; I95.2 Hypotension due to drugs; D69.59 Other secondary thrombocytopenia; E66.9 Obesity, unspecified; G93.89 Other specified disorders of brain; E87.6 Hypokalemia; E03.9 Hypothyroidism, unspecified; E78.5 Hyperlipidemia, unspecified; I10 Essential (primary) hypertension; Z20.828 Contact with and (suspected) exposure to other viral communicable diseases; Z87.820 Personal history of traumatic brain injury; Z68.32 Body mass index [BMI] 32.0-32.9, adult; Z79.899 Other long term (current) drug therapy

== ENCOUNTER 2020-03-09 13:21 | Emergency (ER) | payer OTHER, MEDICAID ==
[~2020-03-09] VITALS: Ht 170.2 cm; Wt 72.6 kg
[~2020-03-09 13:21] MED LIST changes: +HYDROCHLOROTH12.5 M1 PO; +HYDROCHLOROTHIA25 M1 PO; +KLOR-CON 10 ER10 MEQ PO; +LAMOTRIGINE25 MG PO; +LAMOTRIGINE250 MG PO; +LEVOFLOXACIN500 MG PO; +MYSOLINE50 MG PO; +PHENYTOIN; +PHENYTOIN PO; +TIROSINT125 MCG PO; +lamotrigine PO
[2020-03-09] MEDS ORDERED: LISINOPRIL-HCT1 EAC1 PO (13:42)
[2020-03-09] MEDS ORDERED: SIMVASTATIN80 MG PO (13:42)
[2020-03-09 15:31] LABS: HEMATOCRIT 37.5 % (42.0-52.0); HEMOGLOBIN 12.9 gm/dL (14.0-18.0); MCH 29.4 pg (26.0-34.0); MCHC 34.3 g/dL (28.0-37.0); MCV 85.8 fL (80.0-100.0); MPV 7.2 fl. (7.2-11.1); NUCLEATED RBCS 0 /100WBC; PLATELET COUNT* 107 thou/uL (150-400); RBC 4.37 mil/uL (4.50-6.00); RDW-CV 13.6 % (10.5-14.5); WBC 5.4 thou/uL (4.0-11.0)
[2020-03-09 15:37] LABS: CALCIUM 8.6 mg/dL (8.5-10.1); CREATININE 1.3 mg/dL (0.6-1.3)
[2020-03-09 15:48] LABS: ALBUMIN 2.9 g/dL (3.4-5.0); TOTAL BILIRUBIN 0.4 mg/dL (<0.1-1.0); TOTAL PROTEIN 7.3 g/dL (6.4-8.2)
[2020-03-09 16:02] LABS: PLATELET ESTIMATE DECREASED
[2020-03-09 16:03] LABS: ABSOLUTE EOSINOPHILS 0.1 thou/uL (0.0-0.7); ABSOLUTE LYMPHOCYTES 1.3 thou/uL (0.8-5.3); ABSOLUTE MONOCYTES 1.3 thou/uL (0.0-1.2); ABSOLUTE NEUTROPHILS 2.8 thou/uL (1.6-8.1)
[2020-03-09] MEDS ORDERED: POTASSIUM20 PO (16:32)
[2020-03-09 16:41] VITALS: BP 126/72
[2020-03-10 08:23] LABS: POTASSIUM 2.5 mmol/L (3.5-5.1)
--- NOTE | 2020-03-10 15:41 | EKG ---
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: MS : 1960 Requested By: Jose Alberto Caro Order Number: [id number] MD: Jagjit Rogers Measurements Intervals [place] Rate: 70 P: 60 [place]: 130 QRS: 14 QRSD: 73 T: 89 QT: 387 QTc: 418 Interpretive Statements Sinus rhythm Low voltage, precordial leads Abnormal R-wave progression, early transition Borderline ST depression, lateral leads Compared to ECG 02/04/2020 10:54:44 ST (T wave) deviation now present T-wave abnormality no longer present Electronically Signed On 03-10-2020 15:41:12 OPEN WINDER by Jagjit Rogers [email or web address] <ELECTRONICALLY SIGNED> By: Janet Rogers MD, FACC 03/10/20 1541 1628 1628 Janet Rogers MD, [facility] /EPI
== END 2020-03-09 16:42 | disposition home or self-care (01) ==
LOC: M.ERS 13:21
PROVIDERS: Family Medicine
DX: R60.0 Localized edema (principal); E87.6 Hypokalemia; E03.9 Hypothyroidism, unspecified; E78.5 Hyperlipidemia, unspecified; E66.9 Obesity, unspecified; Z86.73 Personal history of transient ischemic attack (TIA), and cerebral infarction without residual deficits; Z68.25 Body mass index [BMI] 25.0-25.9, adult; Z79.899 Other long term (current) drug therapy

== ENCOUNTER 2020-08-13 13:52 | Inpatient (IN) | payer OTHER, MEDICAID ==
[~2020-08-13] VITALS: Ht 170.2 cm; Wt 106.1 kg
--- NOTE | ~2020-08-13 | EEG ---
[address] [address] EEG STUDY REPORT Name: JANELLE MATHEW Room: [address] IN M.R.#: [id number] Admission: 08/13/20 Attend Phys: Carlos Valles Discharge: Date of : 62 Report #: [id number] THIS REPORT FOR: cc: Doreen Martell Maggie M. DO Khosla, Parveen K. MD ~ DOC #: [id number] Elliott García MD DATE OF SERVICE: 08/14/2020 This patient is being evaluated for an episode of syncope. EEG was done by placing the electrode by standard 10-20 system of electrode placement. Both referential and sequential montages were used for recording. Background activity is poorly formed in this patient and does go up to about 7-8 Hz. Photic stimulation is unremarkable. EEG becomes slower when the patient goes to sleep. No active epileptiform activity was noticed. IMPRESSION: This patient's EEG is abnormal because it is disorganized and poorly formed. That is a nonspecific abnormality which can occur with dementia, encephalopathy, effect of psychotropic medication. No active epileptiform activity was noticed during this record. Thank you very much for this referral. Elliott García MD PK/MAX By: 1528 1710Elliott García MD /salma
--- NOTE | ~2020-08-13 | EMS ---
[address] [place] [address] EMS Patient Care Report Name: JANELLE MATHEW Room: [address] IN [facility]#: [id number] Admission: 08/13/20 Attend Phys: Carlos Valles Discharge: Date of : 62 Report #: [id number] THIS REPORT FOR: //name// Report Transmitted: 08/14/2020 16:24 EMS Care Summary [facility] Incident [id number] @ 08/13/2020 12:59 Incident Location [address] [place] [address] Patient JANELLE MATHEW Male, 60 Years 1960 Patient Address [address] [place] [address] Patient History Hypertension (HTN),Seizures,Hyperlipidemia,Hypothyroidism, Patient Allergies No known allergies, Patient Medications Oxybutynin, Simvastatin, Valproic Acid, Levothyroxine, Lamotrigine, Phenytoin, Lisinopril, Chief Complaint fainting Disposition Transported No Lights/Citra Dispatch Reason Convulsions/Seizure Transported To [facility] Narrative [facility] was dispatched for a 60 year old male conscious and breathing. Caller statement- 60 YO M FELL FACE FIRST, POSSIBLE SIEZURE / UNK INJURY / CONSCIOUS BUT [address] [place] [address] EMS Patient Care Report Name: JANELLE MAHTEW Room: [address] IN [facility]#: [id number] Admission: 08/13/20 Attend Phys: Carlos Valles Discharge: Date of : 62 Report #: [id number] NOT RESPONSIVE / BREATHING NORMALLY. Med 1 responds to the scene emergent using lights and sirens. Arrival at the scene EMS personnel find the patient sitting down in a recliner. Patient acknowledges EMS presence is GCS 15, AAOx4. Patient has a patent airway is breathing adequately with strong regular radial pulses. Skin is pink warm and dry. Patient denies any chest pain or shortness of breath. Patient advises that he does feel dizzy when he stands up. VS are obtained and orthostatic blood pressures are conducted and confirmed. Patient agrees to transport and advises that he would like to go to [facility]. Patient is moved to the stair chair and wheeled outside to the stretcher. Patient is placed on the stretcher in the fowlers position and secured using seatbelts and rails. Patient is wheeled to the ambulance and placed on the monitor to obtain VS and ECG. 12 lead ECG is unremarkable. IV access is established in the left forearm using a 20 gauge IV and secured with a venigard.1000ML NS is initiated for rehydration and hypotension. Glucose check conducted is WNL. Transport is initiated. Assessment conducted is unremarkable. Patient is GCS 15, AAOx4. Arrival at the receiving facility patient is offloaded and taken to ED room 15. Patient is moved from the stretcher to the bed using the linen. RN is given report and transfer of care is completed. Signatures are obtained and Med 1 returns to service. Initial Vitals @13:38P: 82,R: 18,BP: 106/50,Pain: 0/10,GCS: 15,SpO2: 98,Revised Trauma: 12,CA Suspected: false @13:10P: 85,R: 16,BP: 98/49,Pain: 0/10,GCS: 15,Glucose: 93,SpO2: 98,Revised Trauma: 12, @13:35P: 81,R: 16,BP: 107/51,Pain: 0/10,GCS: 15,SpO2: 99,Revised Trauma: 12,CA Suspected: false Assessments @13:31MENTAL:No Abnormalities,SKIN:No Abnormalities,HEENT:Head/Face: No Abnormalities,Eyes: No Abnormalities,Neck/Airway: No Abnormalities,LUNG SOUNDS:General: No Abnormalities,Left Upper: No Abnormalities,Right Upper: No Abnormalities,Left Lower: No Abnormalities,Right Lower: No Abnormalities,ABDOMEN:General: No Abnormalities,Left Upper: No Abnormalities,Right Upper: No Abnormalities,Left Lower: No Abnormalities,Right Lower: No Abnormalities,PELVIS//GI:No Abnormalities,EXTREMITIES:Left Arm: No Abnormalities,Right Arm: No Abnormalities,Left Leg: No Abnormalities,Right Leg: No Abnormalities,PULSE:NEURO:No Abnormalities, Impression Hypotension Procedures @13:23Normal Saline (.9% NaCl) 1000cc (20 ga) Site: Forearm-LeftResponse: [place] [address] EMS Patient Care Report Name: JANELLE MATHEW Room: [address] IN [facility]#: [id number] Admission: 08/13/20 Attend Phys: Carlos Valles Discharge: Date of : 62 Report #: [id number] UnchangedSucceeded@13:3112-Lead ECGResponse: UnchangedSucceeded Timeline 12:55,Call Received 12:59,Dispatched 12:59,En Route 13:07,Initial Responder On Scene 13:07,On Scene 13:10,At Patient 13:10,BP: 98/49 M,PULSE: 85,RR: 16 R,SPO2: 98 Ox,ETCO2: ,B,PAIN: 0,GCS: 15, 13:23,Normal Saline (.9% NaCl) 1000cc 20 ga Site: Forearm-Left,Response: UnchangedSucceeded, 13:28,Depart Scene 13:31,12-Lead ECG,Response: UnchangedSucceeded, 13:35,BP: 107/51 M,PULSE: 81,RR: 16 R,SPO2: 99 Ox,ETCO2: ,BG: ,PAIN: 0,GCS: 15, 13:38,BP: 106/50 M,PULSE: 82,RR: 18 R,SPO2: 98 Ox,ETCO2: ,BG: ,PAIN: 0,GCS: 15, 13:49,At Destination 13:51,Transfer Patient 14:14,Call Closed 14:14,In District Disclaimer v1.1 Copyright 2020 [employer] This EMS Care Summary contains data elements from the applicable legal record (which may be displayed differently). It is designed to provide pertinent information for the following purposes: continuity of care, clinical quality, and state data reporting. The complete legal record is available to ED staff and administrators of the receiving hospital in [employer]'s Patient Tracker. All data is provided "as is."
[~2020-08-13 13:52] MED LIST changes: +LISINOPRIL-HCT1 EAC1 PO; -PHENYTOIN PO; +PHENYTOIN SODI100 M3 PO; +POTASSIUM20 PO
[2020-08-13 13:56] VITALS: BP 119/45
[2020-08-13 14:42] LABS: CALCIUM 8.2 mg/dL (8.5-10.1); CREATININE 1.5 mg/dL (0.6-1.3); POTASSIUM 3.6 mmol/L (3.5-5.1)
[2020-08-13 14:46] LABS: TOTAL BILIRUBIN 0.4 mg/dL (<0.1-1.0); TOTAL PROTEIN 6.8 g/dL (6.4-8.2)
[2020-08-13 14:52] LABS: URINE BILIRUBIN NEGATIVE (Negative); URINE BLOOD NEGATIVE (Negative); URINE CLARITY CLEAR; URINE COLOR YELLOW; URINE GLUCOSE-RANDOM NEGATIVE (Negative); URINE KETONES NEGATIVE (Negative); URINE LEUKOCYTES-REFLEX NEGATIVE (Negative); URINE NITRITE-REFLEX NEGATIVE (Negative); URINE PROTEIN NEGATIVE (Negative)
[2020-08-13 15:01] LABS: AMP/METHAMP Negative (Negative); BARBITURATES POSITIVE (Negative); BENZODIAZEPINES Negative (Negative); COCAINE Negative (Negative); METHADONE Negative (Negative); OPIATES Negative (Negative); PCP Negative (Negative); THC Negative (Negative)
[2020-08-13 15:18] LABS: ABSOLUTE BASOPHILS 0.1 thou/uL (0.0-0.2); ABSOLUTE LYMPHOCYTES 1.6 thou/uL (0.8-5.3); ABSOLUTE MONOCYTES 1.3 thou/uL (0.0-1.2); ABSOLUTE NEUTROPHILS 3.6 thou/uL (1.6-8.1); BASOPHILS 0.8 %; EOSINOPHILS 0.1 %; HEMATOCRIT 36.1 % (42.0-52.0); HEMOGLOBIN 12.2 gm/dL (14.0-18.0); LYMPHOCYTES 24.2 %; MCH 29.5 pg (26.0-34.0); MCHC 33.8 g/dL (28.0-37.0); MCV 87.2 fL (80.0-100.0); MONOCYTES 19.3 %; NUCLEATED RBCS 0 /100WBC; PLATELET COUNT* 61 thou/uL (150-400); POLYS 55.6 %; RBC 4.14 mil/uL (4.50-6.00); RDW-CV 14.3 % (10.5-14.5); WBC 6.5 thou/uL (4.0-11.0)
--- NOTE | 2020-08-13 15:51 | EKG ---
[place] [address] ELECTROCARDIOGRAM REPORT Name: JANELLE MATHEW Room: [facility]#: [id number] Admission: 08/13/20 Attend Phys: Discharge: Date of : 62 Date of Service: 08/13/20 1401 Report #: [id number] THIS REPORT FOR: //name// [facility] ED Test Date: 2020-08-13 Test Time: 14:01:35 Pat Name: JANELLE MATHEW Department: Room: Gender: Spot Billing Clerk: [facility] : 1960 Requested By: Dalton Viera Order Number: [id number] MD: Carlos Blakely Measurements Intervals [place] Rate: 77 P: 61 [place]: 146 QRS: 2 QRSD: 87 T: 58 QT: 379 QTc: 429 Interpretive Statements Sinus rhythm Low voltage, precordial leads Abnormal R-wave progression, early transition Borderline T wave abnormalities Compared to ECG 03/09/2020 16:28:20 no change Electronically Signed On 08-13-2020 15:51:50 CDT by Carlos Blakely [email or web address] <ELECTRONICALLY SIGNED> By: Carlos Blakely MD, FAC 08/13/20 1551 1401 1401 Carlos Blakely MD, [facility] /EPI
--- NOTE | 2020-08-13 16:43 | NUR ---
TRIED TO GET PT TO SIDE OF BED, PT ROLLED OUT OF BED TO FLOOR. DARRICK SAENZ, NOTIFIIED. INCIDENT REPORT FILED
--- NOTE | 2020-08-13 18:07 | NUR ---
SPOKE WITH NGUYỄN PT'S DPOA, ZUHAIR GAVE PERMISSION TO TREAT PT
[2020-08-13 19:32] LABS: MAGNESIUM 2.1 mg/dL (1.8-2.4); PHOSPHORUS* 3.3 mg/dL (2.5-4.9)
[2020-08-13 20:30] VITALS: BP 128/48
[2020-08-13 21:00] VITALS: BP 128/57
--- NOTE | 2020-08-13 21:00 | NUR ---
RECEIVED REPORT FROM ER, PT TO ROOM PER CART. PT AMBULATED FROM CART TO BED WITH WALKER AND 2 ASSIST, VERY UNSTEADY. ILEANA ANKLES/FEET 3+ EDEMA, STATES THIS IS NORMAL FOR HIM. TELEMETRY APPLIED SHOWING SR. ADMISSION HX FROM PREVIOUS HOSPITALIZATION, PT UNABLE TO ANSWER QUESTIONS DUE TO MILD MENTALLY CHALLENGED. WILL CONT TO MONITOR AND ASSIST NEEDED.
[2020-08-13] MEDS ORDERED: LEVOTHYROXIN PO (22:39)
[2020-08-13] MEDS ORDERED: PHENYTOIN SODI100 M3 PO (22:44)
[2020-08-13] MEDS ORDERED: VITAMIN B-12 PO (22:49)
[2020-08-13] MEDS ORDERED: VITAMIN D3125 MC2 PO (22:51)
[2020-08-13] MEDS ORDERED: ECHINACEA HERB380 MG PO (22:53)
[2020-08-13] MEDS ORDERED: VITAMIN C WIT1000 MG PO (22:54)
[2020-08-13 23:49] VITALS: BP 129/80
[2020-08-14 03:58] VITALS: BP 114/63
[2020-08-14 04:18] LABS: HEMATOCRIT 37.3 % (42.0-52.0); HEMOGLOBIN 12.4 gm/dL (14.0-18.0); MCH 29.3 pg (26.0-34.0); MCHC 33.2 g/dL (28.0-37.0); MCV 88.2 fL (80.0-100.0); RBC 4.23 mil/uL (4.50-6.00); RDW-CV 14.4 % (10.5-14.5); WBC 6.9 thou/uL (4.0-11.0)
[2020-08-14 04:25] LABS: CALCIUM 8.5 mg/dL (8.5-10.1); CREATININE 1.1 mg/dL (0.6-1.3); POTASSIUM 3.8 mmol/L (3.5-5.1)
--- NOTE | 2020-08-14 07:03 | NUR ---
AWAKE FREQ TONIGHT. SITTING UPON SIDE OF BED TO VOID. DENIES SYNCOPAL FEELING. UNABLE TO GIVE HS MEDS, NOT AVAILABLE. NO CHANGE IN ASSESSMENT. TELEMETRY CONT TO SHOW SR. HS GOALS OF REST AND SAFETY ACHIEVED. HOURLY ROUNDING OBSERVED.
[2020-08-14 08:00] VITALS: BP 118/64
--- NOTE | 2020-08-14 12:14 | 2DMMODE ---
[place] [address] 2 D/M-MODE ECHOCARDIOGRAM Name: JANELLE MATHEW Room: [address] IN .R.#: [id number] Admission: 08/13/20 Attend Phys: Ismael Garcia Discharge: Date of : 62 Date of Service: 08/14/20 1214 Report #: [id number] THIS REPORT FOR: cc: Doreen Martell Maggie M. DO Blick, David R. MD [facility] ~ APPROVED REPORT Study performed: 08/14/2020 10:38:00 EXAM: Comprehensive 2D, Doppler, and color-flow Echocardiogram Patient Location: In-Patient Room #: [facility] Status: routine BSA: 2.26 HR: 67 bpm BP: 118/64 mmHg Rhythm: NSR Other Information Study Quality: Fair Technically limited study due to body habitus, inability to position patient. Indications possible syncope 2D Dimensions IVSd: 11.09 (7-11mm) LVOT Diam: 20.16 (18-24mm) LVDd: 41.86 mm PWd: 8.24 (7-11mm) Ascending Ao: 29.74 (22-36mm) LVDs: 20.16 (25-40mm) Aortic Root: 31.29 mm Pulmonary Valve PV Peak Uday.: 1.17 m/s PV Peak Gr.: 5.45 mmHg Left Ventricle The left ventricle is normal size. There is normal LV segmental wall motion. There is normal left ventricular wall thickness. Left ventricular systolic function is normal. The left ventricular ejection fraction is within the normal range. LVEF is 60-65%. This study is not technically sufficient to allow evaluation of [place] [address] 2 D/M-MODE ECHOCARDIOGRAM Name: JANELLE MATHEW Room: [address] IN M.R.#: [id number] Admission: 08/13/20 Attend Phys: Ismael Garcia Discharge: Date of : 62 Date of Service: 08/14/20 1214 Report #: [id number] Right Ventricle The right ventricle is normal size. The right ventricular systolic function is normal. Atria The left atrium size is normal. The right atrium size is normal. Aortic Valve The aortic valve is normal in structure. No aortic regurgitation is present. There is no aortic valvular stenosis. Mitral Valve The mitral valve is normal in structure. There is no mitral valve regurgitation noted. No evidence of mitral valve stenosis. Tricuspid Valve The tricuspid valve is normal in structure. There is no tricuspid valve regurgitation noted. Pulmonic Valve The pulmonary valve is normal in structure. There is no pulmonic valvular regurgitation. Great Vessels The aortic root is normal in size. IVC is not well visualized. Pericardium There is no pericardial effusion. <Conclusion> Left ventricular systolic function is normal. The left ventricular ejection fraction is within the normal range. <ELECTRONICALLY SIGNED> By: Carlos Blakely MD, FACC 08/14/20 1214 1214 121 Carlos Blakely MD, FACC /INF
--- NOTE | 2020-08-14 13:57 | NUR ---
Pt is A&O. Resides at home with mom. Normally independent uses a walker for mobility. Hx of HH with [facility]. Brother is DPOA and lives close by. Per , anticipate weekend dc. If Pt needs HH at wi, fax H&P, facesheet and dc summary/med list to [phone]
[2020-08-14 20:00] VITALS: BP 111/57
[2020-08-15] VITALS: BP 127/57
[2020-08-15 04:43] VITALS: BP 131/68
[2020-08-15 04:49] LABS: HEMATOCRIT 37.7 % (42.0-52.0); HEMOGLOBIN 12.6 gm/dL (14.0-18.0); MCH 29.4 pg (26.0-34.0); MCHC 33.4 g/dL (28.0-37.0); MCV 88.3 fL (80.0-100.0); MPV 8.2 fl. (7.2-11.1); NUCLEATED RBCS 0 /100WBC; PLATELET COUNT* 62 thou/uL (150-400); RBC 4.27 mil/uL (4.50-6.00); RDW-CV 14.3 % (10.5-14.5); WBC 6.2 thou/uL (4.0-11.0)
[2020-08-15 04:52] LABS: ALBUMIN 2.6 g/dL (3.4-5.0); CALCIUM 8.8 mg/dL (8.5-10.1); POTASSIUM 4.1 mmol/L (3.5-5.1); TOTAL BILIRUBIN 0.5 mg/dL (<0.1-1.0); TOTAL PROTEIN 6.4 g/dL (6.4-8.2)
[2020-08-15 07:03] LABS: ABSOLUTE LYMPHOCYTES 2.4 thou/uL (0.8-5.3); ABSOLUTE MONOCYTES 0.9 thou/uL (0.0-1.2); ABSOLUTE NEUTROPHILS 2.9 thou/uL (1.6-8.1); ATYPICAL LYMPHS 7 %; METAMYELOCYTES 4 %; PLATELET ESTIMATE DECREASED
[2020-08-15 08:23] VITALS: BP 133/54
[2020-08-15] MEDS ORDERED: LEVOTHYROXINE112 MCG PO (11:52)
[2020-08-15] MEDS ORDERED: LAMOTRIGINE25 MG PO (11:52)
[2020-08-15] MEDS ORDERED: VALPROIC ACID250 MG PO (11:52)
[2020-08-15 12:00] VITALS: BP 129/70
[2020-08-15 14:19] VITALS: BP 129/70
--- NOTE | 2020-08-18 17:24 | CON ---
[address] [address] CONSULTATION Name: JANELLE MATHEW Room: [address] [place].#: [id number] Admission: 08/13/20 Attend Phys: Carlos Valles Discharge: 08/15/20 Date of : 62 Report #: [id number] THIS REPORT FOR: cc: Doreen Martell Maggie M. DO Blick, David R. MD [facility] ~ DOC #: [id number] cc: Doreen Blakely MD [facility] CARDIOLOGY CONSULTATION HISTORY OF PRESENT ILLNESS: The patient is a 60-year-old single white male who I was asked to see in the hospital today after he fell. The patient apparently has a history of mental handicap. 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 He does use a walker. He has encephalopathy. He lives with his parents. He was last here at [facility] year ago. He was brought back to the emergency room last night after paramedics were called to the home after he fell. He was noted to be hypotensive. The parents concerned that he had a seizure. When he was admitted, he complained of hurting all over. He has no previous history of heart disease. PAST MEDICAL HISTORY: He has had a history of seizures, mental retardation and hypertension. MEDICATIONS ON ADMISSION: Included Mysoline, valproic acid, Dilantin, lisinopril, HCT, Synthroid and simvastatin. SOCIAL HISTORY: Lives with his parents in [place]. He does chew tobacco. FAMILY HISTORY: No history of heart disease. REVIEW OF SYSTEMS: He has had no history of stroke. He is hard of hearing. No history of asthma, liver disease, kidney disease, cancer or chronic skin condition. PHYSICAL EXAMINATION: GENERAL: Revealed middle-aged male, lying in bed, he appeared in no acute distress. VITAL SIGNS: He had a blood pressure of 130/60, pulse is 80 and he is afebrile. HEENT: He was anicteric. Conjunctivae pink. Mucous membrane is moist. NECK: Veins do not appear distended. CHEST: [place] [address] CONSULTATION Name: JANELLE MATHEW Room: [address]#: [id number] Admission: 08/13/20 Attend Phys: Carlos Valles Discharge: 08/15/20 Date of : 62 Report #: [id number] HEART: Regular rate and rhythm. ABDOMEN: Obese. EXTREMITIES: Had trace edema. SKIN: Warm and dry. NEUROLOGIC: He had a tremor. LABORATORY DATA: His ECG showed a sinus rhythm. Nonspecific T-wave changes. His workup included a chest x-ray last January, which showed normal heart size, clear lung javier. He actually had a CT scan of the head performed last night in the emergency room that showed atrophy. Venous duplex scan was performed yesterday because of edema that showed no DVT. His lab work, sodium 138, creatinine 1.1. Troponins were all 0.06. BNP 515 in last February. TSH in last December was 0.5. White blood cell count 6.9 and hemoglobin 12.4. His COVID antigen stat test is pending. IMPRESSION AND RECOMMENDATIONS: 1. Possible seizure. The patient followed by neurology. 2. Hypotension. He would avoid dehydration. 3. Seizure disorder. 4. Hypertension. The patient is on MAI inhibitor and diuretic. 5. Hyperlipidemia. The patient is on a statin drug. 6. History of encephalopathy. Carlos Blakely MD [facility] VALERIO/BEENA <ELECTRONICALLY SIGNED> By: Carlos Blakely MD, [facility] 08/18/20 1724 0912 [id number] Blakely MD, [facility] /nt
== END 2020-08-15 14:54 | disposition home or self-care (01) | DRG 641 ==
LOC: M.ERS 13:52 → M.2W 16:58 → M.TBA-ER 16:58 → M.2W 21:13
PROVIDERS: Physician Assistant; ADMIT Internal Medicine; ATTEND Internal Medicine
DX: E86.0 Dehydration (principal); N17.9 Acute kidney failure, unspecified; E44.1 Mild protein-calorie malnutrition; G40.909 Epilepsy, unspecified, not intractable, without status epilepticus; I95.9 Hypotension, unspecified; E03.9 Hypothyroidism, unspecified; I10 Essential (primary) hypertension; E78.5 Hyperlipidemia, unspecified; D69.6 Thrombocytopenia, unspecified; F79 Unspecified intellectual disabilities; E87.6 Hypokalemia; E83.51 Hypocalcemia; Z20.822 Contact with and (suspected) exposure to COVID-19; Z79.899 Other long term (current) drug therapy; Z86.73 Personal history of transient ischemic attack (TIA), and cerebral infarction without residual deficits; Z68.36 Body mass index [BMI] 36.0-36.9, adult

== ENCOUNTER 2020-08-20 16:10 | Emergency (ER) | payer OTHER, MEDICAID ==
[~2020-08-20] VITALS: Ht 170.2 cm; Wt 112.8 kg
[~2020-08-20 16:10] MED LIST changes: +ECHINACEA HERB380 MG PO; +LEVOTHYROXIN PO; +LEVOTHYROXINE112 MCG PO; +VITAMIN B-12 PO; +VITAMIN C WIT1000 MG PO; +VITAMIN D3125 MC2 PO
[2020-08-20] MEDS ORDERED: MYSOLINE50 MG PO (17:30)
[2020-08-20 17:53] LABS: ABSOLUTE LYMPHOCYTES 1.8 thou/uL (0.8-5.3); BASOPHILS 0.6 %; EOSINOPHILS 0.2 %; HEMATOCRIT 35.1 % (42.0-52.0); HEMOGLOBIN 11.7 gm/dL (14.0-18.0); LYMPHOCYTES 30.8 %; MCH 29.3 pg (26.0-34.0); MCHC 33.3 g/dL (28.0-37.0); MCV 87.8 fL (80.0-100.0); MONOCYTES 17.2 %; MPV 6.9 fl. (7.2-11.1); NUCLEATED RBCS 0 /100WBC; PLATELET COUNT* 102 thou/uL (150-400); POLYS 51.2 %; RDW-CV 14.9 % (10.5-14.5); WBC 5.8 thou/uL (4.0-11.0)
[2020-08-20 17:57] LABS: CALCIUM 8.3 mg/dL (8.5-10.1); CREATININE 1.1 mg/dL (0.6-1.3); POTASSIUM 4.5 mmol/L (3.5-5.1)
[2020-08-20 18:08] LABS: ALBUMIN 2.7 g/dL (3.4-5.0); TOTAL BILIRUBIN 0.3 mg/dL (<0.1-1.0); TOTAL PROTEIN 6.5 g/dL (6.4-8.2)
[2020-08-20 19:07] LABS: URINE BILIRUBIN NEGATIVE (Negative); URINE BLOOD NEGATIVE (Negative); URINE CLARITY CLEAR; URINE COLOR YELLOW; URINE GLUCOSE-RANDOM NEGATIVE (Negative); URINE KETONES NEGATIVE (Negative); URINE LEUKOCYTES-REFLEX NEGATIVE (Negative); URINE NITRITE-REFLEX NEGATIVE (Negative); URINE PROTEIN NEGATIVE (Negative); URINE UROBILINOGEN >= 8.0 E.U./dl (0.2-1.0)
[2020-08-20 22:00] VITALS: BP 138/67
--- NOTE | 2020-08-21 10:49 | EKG ---
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: SAMANTHA : 1960 Requested By: Herb Hawthorne Order Number: [id number] MD: Carlos Blakely Measurements Intervals [place] Rate: 67 P: 52 LA: 139 QRS: 11 QRSD: 90 T: 31 QT: 384 QTc: 406 Interpretive Statements Sinus rhythm artifact noted Abnormal R-wave progression, early transition Compared to ECG 08/13/2020 14:01:35 T-wave abnormality no longer present Electronically Signed On 08-21-2020 10:49:28 CDT by Carlos Blakely [email or web address] <ELECTRONICALLY SIGNED> By: Carlos Blakely MD, [facility] 08/21/20 1049 1808 1808 Carlos Blakely MD, [facility] /EPI
== END 2020-08-20 22:00 | disposition home or self-care (01) ==
LOC: M.ERS 16:10
PROVIDERS: Emergency Medicine Emergency Medical Services
DX: R53.1 Weakness (principal); E03.9 Hypothyroidism, unspecified; E78.5 Hyperlipidemia, unspecified; I10 Essential (primary) hypertension; E66.9 Obesity, unspecified; R29.6 Repeated falls; Z86.73 Personal history of transient ischemic attack (TIA), and cerebral infarction without residual deficits; Z79.899 Other long term (current) drug therapy

== ENCOUNTER 2021-03-05 11:12 | Inpatient (IN) | payer OTHER, MEDICAID ==
[~2021-03-05] VITALS: Ht 157.5 cm; Wt 100.2 kg
[2021-03-05 11:16] VITALS: BP 104/28
[2021-03-05 11:40] LABS: ABSOLUTE LYMPHOCYTES 1.4 thou/uL (0.8-5.3); ABSOLUTE MONOCYTES 0.9 thou/uL (0.0-1.2); EOSINOPHILS 0.1 %; HEMATOCRIT 26.2 % (42.0-52.0); HEMOGLOBIN 8.9 gm/dL (14.0-18.0); LYMPHOCYTES 30.9 %; MCH 32.2 pg (26.0-34.0); MCHC 34.1 g/dL (28.0-37.0); MCV 94.4 fL (80.0-100.0); MONOCYTES 21.5 %; MPV 8.6 fl. (7.2-11.1); NUCLEATED RBCS 0 /100WBC; POLYS 46.5 %; RBC 2.78 mil/uL (4.50-6.00); RDW-CV 13.3 % (10.5-14.5); WBC 4.4 thou/uL (4.0-11.0)
[2021-03-05 11:47] LABS: PLATELET COUNT* 42 thou/uL (150-400)
[2021-03-05 11:51] LABS: CREATININE 4.3 mg/dL (0.6-1.3); POTASSIUM 3.3 mmol/L (3.5-5.1)
[2021-03-05 11:56] LABS: ALBUMIN 2.7 g/dL (3.4-5.0); TOTAL BILIRUBIN 0.3 mg/dL (<0.1-1.0); TOTAL PROTEIN 5.9 g/dL (6.4-8.2)
[2021-03-05 12:13] LABS: HYPOCHROMASIA Occasional; PLATELET ESTIMATE DECREASED
--- NOTE | 2021-03-05 12:22 | EKG ---
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 : 1960 Requested By: Herb Hawthorne Order Number: [id number] MD: Carlos Blakely Measurements Intervals [place] Rate: 73 P: NV: QRS: 1 QRSD: 96 T: 39 QT: 347 QTc: 383 Interpretive Statements sinus rhythm Low voltage, precordial leads Abnormal R-wave progression, early transition Minimal ST depression, anterolateral leads Baseline wander in lead(s) V1 Compared to ECG 08/20/2020 18:08:25 Low QRS voltage now present Electronically Signed On 03-05-2021 12:22:50 RN APPEALS by Carlos Blakely [email or web address] <ELECTRONICALLY SIGNED> By: Carlos Blakely MD, FACC 03/05/21 1222 1119 1119 Carlos Blakely MD, FACC /EPI
[2021-03-05 13:50] LABS: URINE BILIRUBIN NEGATIVE (Negative); URINE BLOOD NEGATIVE (Negative); URINE CLARITY CLEAR; URINE COLOR YELLOW; URINE GLUCOSE-RANDOM NEGATIVE (Negative); URINE KETONES NEGATIVE (Negative); URINE LEUKOCYTES-REFLEX NEGATIVE (Negative); URINE NITRITE-REFLEX NEGATIVE (Negative); URINE PROTEIN NEGATIVE (Negative); URINE UROBILINOGEN 0.2 E.U./dl (0.2-1.0)
[2021-03-05] MEDS ORDERED: B-125000 MC1 PO (17:01)
[2021-03-05] MEDS ORDERED: ECHINACEA EXTR125 MG PO (17:02)
[2021-03-05] MEDS ORDERED: FUROSEMIDE 40 M40 MG PO (17:03)
[2021-03-05] MEDS ORDERED: LISINOPRIL-HCT1 EAC1 PO (17:05)
[2021-03-05] MEDS ORDERED: LAMICTAL 25 MG25 MG PO (17:05)
[2021-03-05] MEDS ORDERED: VALPROIC ACID250 MG PO (17:08)
[2021-03-05 20:30] VITALS: BP 110/48
[2021-03-05 23:54] VITALS: BP 122/50
--- NOTE | 2021-03-06 00:27 | NUR ---
PATIENT ARRIVED FROM ER VIA CART TO ROOM 313. PT ALERT/ORIENTED X4; FORGETFUL AND HAS SOME MR. PT DENIES PAIN/NAUSEA. PT VOIDS YELLOW URINE PER URINAL. PT ORIENTED TO ROOM/POLICIES AND VERBALIZES UNDERSTANDING. PT WITH IV FLUIDS RUNNING WIDE OPEN AT THIS TIME. MESSAGE WILL BE SENT TO DR CRUZ FOR FURTHER ORDERS. SIDERAILS UPX4 WITH SEIZURE PADS IN PLACE AND BED ALARM ON. WILL CONTINUE TO MONITOR.
--- NOTE | 2021-03-06 05:37 | NUR ---
PATIENT SLEPT WELL DURING THIS SHIFT. PT USES CALL LIGHT APPROPRIATELY FOR ASSISTANCE WITH URINAL. PT VOIDS YELLOW URINE. PT WITH TREMORS IN BOTH ARMS. PT SAYS HIS LEGS ARE WEAK. PT DENIES PAIN/NAUSEA. PT SALINE LOCKED AT THIS TIME AND IS ON ROOM AIR. FREQUENTLY USED ITEMS AND CALL LIGHT WITHIN REACH. SIDERAILS UPX4 AND SEIZURE PADS IN PLACE. WILL CONTINUE TO MONITOR.
[2021-03-06 09:09] VITALS: BP 111/52
[2021-03-06 09:58] LABS: CALCIUM 8.2 mg/dL (8.5-10.1); POTASSIUM 3.3 mmol/L (3.5-5.1)
[2021-03-06 10:00] LABS: CREATININE 2.1 mg/dL (0.6-1.3)
[2021-03-06 11:48] VITALS: BP 112/51
--- NOTE | 2021-03-06 14:45 | NUR ---
Assumed care of patient this am around 0715. Patient is awake, and denies any pain. IV fluids infusoing 100ml per hour. Called urology at 1230 to check when he will make rounds. Dr was unaware of this patient. He arrived at 1445. Talking with patient and spouse at this time.
[2021-03-06 15:50] VITALS: BP 115/50
[2021-03-06 20:15] VITALS: BP 116/43
--- NOTE | 2021-03-07 04:46 | NUR ---
PT HAS SLEPT ON AND OFF OVERNIGHT. USING CALL LITE FOR ASSISTANCE WITH URINAL. HAD 2 INCONTINENT BMS OVERNIGHT, DONALDO CARE GIVEN. PT TURNED AND REPOSITIONED Q2 HOURS AND PRN. LAC IVF INFUSING PER PUMP. TREMORS TO ARMS. TAKES PILLS WHOLE WITH WATER. AM LABS DRAWN. FALL RISK PRECAUTIONS IN PLACE. HAS DENIED NEED FOR PAIN MEDS. PT/OT/ST TO SEE PT. BED ALARM ON FOR SAFETY.
[2021-03-07 05:10] LABS: ALBUMIN 2.3 g/dL (3.4-5.0); CALCIUM 8.3 mg/dL (8.5-10.1); CREATININE 1.3 mg/dL (0.6-1.3); POTASSIUM 3.3 mmol/L (3.5-5.1); TOTAL BILIRUBIN 0.3 mg/dL (<0.1-1.0); TOTAL PROTEIN 5.6 g/dL (6.4-8.2)
[2021-03-07 08:23] VITALS: BP 96/32
[2021-03-07 16:00] VITALS: BP 106/43
[2021-03-07 19:45] VITALS: BP 97/37
[2021-03-08 04:14] LABS: CALCIUM 8.2 mg/dL (8.5-10.1); CREATININE 1.1 mg/dL (0.6-1.3); POTASSIUM 3.6 mmol/L (3.5-5.1)
--- NOTE | 2021-03-08 04:15 | NUR ---
PT A&O, VSS ON RA. MEDS GIVEN ORDERED. PT NEEDS HELP WITH URINAL. NO C/O PAIN. IVF INFUISING. CALL LIGHT WITHIN REACH. WILL CONTINUE TO MONITOR.
[2021-03-08 08:00] VITALS: BP 127/60
--- NOTE | 2021-03-08 10:31 | NUR ---
Nutrition: Pt admitted with LESLEY. Assessed for high BMI, 40.4. Usual wt is ~220s. H/o cognitive delay, seizure disorder. Meds: statin, B12, vit C, D. 2gm Na diet ordered. Albumin 2.3, prealb 17.2. Encourage good intake at meal times, encourage good hydration. Consider low to mild nutrition risk.
--- NOTE | 2021-03-08 11:10 | CON ---
[address] [address] CONSULTATION Name: JANELLE MATHEW Room: [address] IN M.R.#: [id number] Admission: 03/05/21 Attend Phys: Carlos Valles Discharge: Date of : 62 Report #: [id number] THIS REPORT FOR: cc: Doreen Martell Maggie M. DO Arakelov, Alexandr V. MD ~ DATE OF CONSULTATION: 03/06/2021 REQUESTING PHYSICIAN: Ismael Garcia DO REASON FOR CONSULTATION: Acute kidney injury. HISTORY OF PRESENT ILLNESS: The patient is a 60-year-old man with medical history significant for some mild mental agitation, history of stroke, presents with complaints of generalized weakness, not feeling well, was found to be in acute kidney injury, volume depleted. He was given some fluids. His creatinine was 4.3 on admission, is down to 2.3 now. He also has low platelet count of 42,000. Low white count and low hemoglobin suggest pancytopenia. SOCIAL HISTORY: No tobacco or alcohol abuse. FAMILY HISTORY: Noncontributory. MEDICATIONS: Reviewed. PHYSICAL EXAMINATION: GENERAL: Awake, alert. VITAL SIGNS: Blood pressure 111/52, heart rate 68, afebrile. HEENT: Pupils are round. NECK: Supple. LUNGS: Clear. CARDIOVASCULAR: Regular rate. ABDOMEN: Soft. ASSESSMENT: 1. Acute kidney injury due to volume depletion. 2. History of stroke. 3. Pancytopenia. [place] [address] [place] [address] CONSULTATION Name: JANELLE MATHEW Room: [address] IN M.R.#: [id number] Admission: 03/05/21 Attend Phys: Carlos Valles Discharge: Date of : 62 Report #: [id number] PLAN: Continue fluids. Follow labs. From my standpoint, doing well. <ELECTRONICALLY SIGNED> By: Galo Bedolla MD 03/08/21 1110 0933 [id number] Bedolla MD /nt
--- NOTE | 2021-03-08 19:34 | NUR ---
PT SLOWLY PROGRESSING TOWARDS DC GOALS. PT HAS WALKED WITH THERAPY TODAY, BUT SHAKES REALLY BAD, WALKING WITH WALKER. VSS AFEBRILE. PT BERLIEVES HE IS GOING HOME TO MOM'S HOUSE. NOBODY HAS DISCUSSED WITH HIM ABOUT GOING TO A SNF. WILL CONTIONUE TO MONITOR PLAN OF CARE.
--- NOTE | 2021-03-08 19:38 | NUR ---
CM ASSESSMENT ASSESSMENT COMPLETED WITH PT'S BROTHER (NGUYỄN GAMA - [phone]). PT LIVES WITH 90 YEAR OLD MOTHER WHO CANNOT CARE FOR HIM. PT USES A WALKER AND WC BUT WC DOES NOT FIT IN MOBILE HOME. PT NEEDS ADL SUPPORT FOR DRESS, MEDICATION, AND BATHING. PT HAS NO SKILLED OR REHAB SERVICES, BUT HAS HAD HH. PT IN NEED OF LINKAGE TO LTC. CM TO FOLLOWUP WITH PT.
[2021-03-08 19:45] VITALS: BP 121/54
--- NOTE | 2021-03-09 04:19 | NUR ---
PT A&O X 4. VSS ON RA. DENIED PAIN. MEDS GIVEN ORDERED. UP WITH 1 ASSIST. CALL LIGHT WITHIN REACH. WILL CONTINUE TO MONITOR.
[2021-03-09 04:44] LABS: HEMOGLOBIN 9.1 gm/dL (14.0-18.0); MCH 32.4 pg (26.0-34.0); MCHC 34.9 g/dL (28.0-37.0); MCV 92.8 fL (80.0-100.0); MPV 8.2 fl. (7.2-11.1); RBC 2.8 mil/uL (4.50-6.00); RDW-CV 12.7 % (10.5-14.5); WBC 5.6 thou/uL (4.0-11.0)
[2021-03-09 05:06] LABS: ALBUMIN 2.2 g/dL (3.4-5.0); CALCIUM 8.2 mg/dL (8.5-10.1); MAGNESIUM 1.7 mg/dL (1.8-2.4); POTASSIUM 3.3 mmol/L (3.5-5.1); TOTAL BILIRUBIN 0.3 mg/dL (<0.1-1.0); TOTAL PROTEIN 5.5 g/dL (6.4-8.2)
[2021-03-09 08:40] VITALS: BP 112/50
[2021-03-09 15:48] VITALS: BP 113/53
--- NOTE | 2021-03-09 17:44 | NUR ---
CM FOLLOWUP PT AGREEABLE TO SKILLED AND REFERRED TO [facility]. CM TO FOLLOWUP.
[2021-03-09 19:56] VITALS: BP 108/62
--- NOTE | 2021-03-10 05:06 | NUR ---
PT A&OX4, CONGNITIVE DELAY, SEIZURE PRECAUTIONS, IV SALINE LOCKED, VSS ON ROOM AIR, NO CO PAIN OR DISCOMFORT. PT SLEEPING WELL, WILL CONTINUE TO MONITOR.
[2021-03-10 05:41] LABS: HEMATOCRIT 24.8 % (42.0-52.0); HEMOGLOBIN 8.6 gm/dL (14.0-18.0); MCH 32.2 pg (26.0-34.0); MCHC 34.7 g/dL (28.0-37.0); MCV 92.8 fL (80.0-100.0); MPV 7.8 fl. (7.2-11.1); RBC 2.68 mil/uL (4.50-6.00); RDW-CV 12.9 % (10.5-14.5)
[2021-03-10 06:17] LABS: CALCIUM 8.3 mg/dL (8.5-10.1); CREATININE 1.1 mg/dL (0.6-1.3); MAGNESIUM 1.7 mg/dL (1.8-2.4); POTASSIUM 3.1 mmol/L (3.5-5.1)
[2021-03-10 08:13] VITALS: BP 99/55
[2021-03-10 12:22] VITALS: BP 136/63
[2021-03-10 16:31] VITALS: BP 102/51
--- NOTE | 2021-03-10 17:50 | NUR ---
PT UP WITH GAIT BELT AND WALKER AND 1 X ASST. PT IS ON RM AIR. PT VOIDS USING URINAL. PT HAS LT AC IV. PT HAS TREMORS. NO COMPLAINTS OF PAIN THIS SHIFT. PT HAD A BONE BIOPSY TODAY, WAS GIVEN 1 VERSED AND 50 FENTANYL AND PT DID DESTAT AND WAS PLACED ON 02 DURING THE TIME OF THE PROCEDURE AND WENT TO NORMAL AFTER PROCEDURE WAS DONE. PT LABS MAG 1.7 WAS GIVEN 800MG AT 1400. AND POTASSIUM 3.1 WAS GIVEN 40 AT 1400 AND 40 AT 1700, LAB ORDER FOR REDRAW AT 1900 PUT IN. PT IS RESTING WATCHING TV WITH CALL IN REACH AND FALL PRECAUTIONS IN PLACE.
--- NOTE | 2021-03-10 18:11 | NUR ---
CM FOLLOWUP PT NOT MED CLEAR. PT PENDING [facility] ([phone]) AUTH.
[2021-03-11 05:13] LABS: HEMATOCRIT 25.9 % (42.0-52.0); HEMOGLOBIN 8.9 gm/dL (14.0-18.0); MCH 32.3 pg (26.0-34.0); MCHC 34.4 g/dL (28.0-37.0); MCV 93.9 fL (80.0-100.0); MPV 8.5 fl. (7.2-11.1); RBC 2.75 mil/uL (4.50-6.00); RDW-CV 13.2 % (10.5-14.5); WBC 6.4 thou/uL (4.0-11.0)
[2021-03-11 05:26] LABS: CALCIUM 8.4 mg/dL (8.5-10.1); CREATININE 1.1 mg/dL (0.6-1.3); MAGNESIUM 1.7 mg/dL (1.8-2.4); POTASSIUM 4.3 mmol/L (3.5-5.1)
[2021-03-11 07:56] VITALS: BP 116/50
[2021-03-11 15:30] VITALS: BP 122/55
[2021-03-11 20:00] VITALS: BP 115/62
[2021-03-12 07:44] LABS: HEMATOCRIT 28.9 % (42.0-52.0); MCH 32.4 pg (26.0-34.0); MCHC 34.5 g/dL (28.0-37.0); MCV 93.9 fL (80.0-100.0); MPV 7.7 fl. (7.2-11.1); RBC 3.08 mil/uL (4.50-6.00); RDW-CV 13.5 % (10.5-14.5); WBC 7.3 thou/uL (4.0-11.0)
[2021-03-12 07:57] LABS: CREATININE 1.1 mg/dL (0.6-1.3); POTASSIUM 4.5 mmol/L (3.5-5.1)
[2021-03-12 08:00] VITALS: BP 130/56
--- NOTE | 2021-03-12 13:00 | NUR ---
CM FOLLOWUP PT TO DC 03/12/21 TO [facility] ([phone]). [facility] TO TRANSPORT.
[2021-03-12 15:19] VITALS: BP 130/56
--- NOTE | 2021-03-12 15:20 | NUR ---
PATIENT TRANSFERED TO [facility] VIA WHEELCHAIR ACCOMPANIED BY TRANSPORTER TO TRANSPORT VEHICLE. IV DC'D, COTTON BALL AND BANDAD TO SITE. DISCHARGE INSTRUCTIONS SENT WITH PATIENT. REPORT GIVEN TO NURSE LUO AT [facility]. ALL QUESTIONS AND CONCERNS ADDRESSED.
== END 2021-03-12 15:24 | DRG 682 ==
LOC: M.ERS 11:12 → M.TBA-ER 12:32 → M.3W 12:32
PROVIDERS: Emergency Medicine Emergency Medical Services; Internal Medicine; Internal Medicine Hematology & Oncology; Internal Medicine Nephrology; ADMIT Internal Medicine; ATTEND Internal Medicine
PROC: 07DR3ZX Extraction of Iliac Bone Marrow, Percutaneous Approach, Diagnostic (ICD-10-PCS; principal; 2021-03-10)
DX: N17.0 Acute kidney failure with tubular necrosis (principal); E43 Unspecified severe protein-calorie malnutrition; E87.1 Hypo-osmolality and hyponatremia; Z68.41 Body mass index [BMI] 40.0-44.9, adult; D61.818 Other pancytopenia; E03.9 Hypothyroidism, unspecified; E78.5 Hyperlipidemia, unspecified; Z86.73 Personal history of transient ischemic attack (TIA), and cerebral infarction without residual deficits; E16.2 Hypoglycemia, unspecified; E87.6 Hypokalemia; G40.909 Epilepsy, unspecified, not intractable, without status epilepticus; D75.839 Thrombocytosis, unspecified; E66.9 Obesity, unspecified; Z87.891 Personal history of nicotine dependence; G93.89 Other specified disorders of brain; I10 Essential (primary) hypertension; Z20.822 Contact with and (suspected) exposure to COVID-19; E86.0 Dehydration; D64.89 Other specified anemias

== ENCOUNTER 2021-04-22 16:42 | Inpatient (IN) | payer OTHER, MEDICAID ==
[~2021-04-22] VITALS: Ht 172.7 cm; Wt 129.3 kg
[~2021-04-22 16:42] MED LIST changes: +B-125000 MC1 PO; +ECHINACEA EXTR125 MG PO; +FUROSEMIDE 40 M40 MG PO; +LAMICTAL 25 MG25 MG PO; -LEVOTHYROXIN PO; +LEVOXYL112 MCG PO
[2021-04-22 16:47] VITALS: BP 84/54
[2021-04-22 17:23] LABS: HEMATOCRIT 27.9 % (42.0-52.0); HEMOGLOBIN 9.7 gm/dL (14.0-18.0); MCH 32.2 pg (26.0-34.0); MCHC 34.8 g/dL (28.0-37.0); MCV 92.6 fL (80.0-100.0); NUCLEATED RBCS 0 /100WBC; RBC 3.01 mil/uL (4.50-6.00); RDW-CV 12.9 % (10.5-14.5); WBC 4.5 thou/uL (4.0-11.0)
[2021-04-22 17:29] LABS: PLATELET COUNT* 34 thou/uL (150-400)
[2021-04-22 17:36] LABS: APTT 24.8 Seconds (25.0-31.3); INR 1.1
[2021-04-22 17:37] LABS: URINE BILIRUBIN NEGATIVE (Negative); URINE BLOOD TRACE (Negative); URINE CLARITY CLEAR; URINE COLOR YELLOW; URINE GLUCOSE-RANDOM NEGATIVE (Negative); URINE KETONES NEGATIVE (Negative); URINE LEUKOCYTES-REFLEX NEGATIVE (Negative); URINE NITRITE-REFLEX NEGATIVE (Negative); URINE PROTEIN NEGATIVE (Negative); URINE UROBILINOGEN 0.2 E.U./dl (0.2-1.0)
[2021-04-22 17:41] LABS: CREATININE 4.5 mg/dL (0.6-1.3); POTASSIUM 3.7 mmol/L (3.5-5.1)
[2021-04-22 17:57] LABS: ALBUMIN 3.1 g/dL (3.4-5.0); CK-MB MASS 1.3 ng/mL (<0.5-3.6); TOTAL BILIRUBIN 0.2 mg/dL (<0.1-1.0); TOTAL PROTEIN 6.3 g/dL (6.4-8.2)
[2021-04-22 18:02] LABS: ABSOLUTE LYMPHOCYTES 2.3 thou/uL (0.8-5.3); ABSOLUTE MONOCYTES 0.5 thou/uL (0.0-1.2); ABSOLUTE NEUTROPHILS 1.8 thou/uL (1.6-8.1)
[2021-04-22 18:03] LABS: PLATELET ESTIMATE DECREASED
[2021-04-22 22:00] VITALS: BP 90/56
[2021-04-23 02:14] VITALS: BP 109/43
[2021-04-23 06:39] VITALS: BP 114/40
[2021-04-23 08:03] VITALS: BP 114/40
[2021-04-23 09:58] LABS: CALCIUM 8.3 mg/dL (8.5-10.1); POTASSIUM 3.5 mmol/L (3.5-5.1)
[2021-04-23 10:00] LABS: CREATININE 2.6 mg/dL (0.6-1.3)
[2021-04-23 10:59] VITALS: BP 101/51
--- NOTE | 2021-04-23 11:14 | EKG ---
[place] [address] ELECTROCARDIOGRAM REPORT Name: JANELLE MATHEW Room: [address] ADM IN .R.#: [id number] Admission: 04/22/21 Attend Phys: Zahira Segura Discharge: Date of : 62 Date of Service: 04/22/21 1647 Report #: [id number] THIS REPORT FOR: //name// [facility] ED Test Date: 2021-04-22 Test Time: 16:47:53 Pat Name: JANELLE MATHEW Department: Room: [facility] Gender: M Endodontic Assistant: YAN : 1960 Requested By: Gurwinder Dowling Order Number: [id number] MD: Carlos Blakely Measurements Intervals [place] Rate: 77 P: 105 [place]: 160 QRS: 4 QRSD: 93 T: 2 QT: 378 QTc: 428 Interpretive Statements Sinus rhythm Low voltage, precordial leads Abnormal R-wave progression, early transition Compared to ECG 03/05/2021 11:19:21 no change Electronically Signed On 04-23-2021 11:14:20 CUTTING DEPARTMENT SUPERVISOR by Carlos Blakely [email or web address] <ELECTRONICALLY SIGNED> By: Carlos Blakely MD, FAC 04/23/21 1114 1647 1647 Carlos Blakely MD, FAC /EPI
[2021-04-23 12:03] VITALS: BP 104/44
[2021-04-23 13:53] LABS: ABSOLUTE LYMPHOCYTES 1.2 thou/uL (0.8-5.3); ABSOLUTE MONOCYTES 0.6 thou/uL (0.0-1.2); ABSOLUTE NEUTROPHILS 1.5 thou/uL (1.6-8.1); BASOPHILS 0.5 %; EOSINOPHILS 0.1 %; HEMATOCRIT 29.9 % (42.0-52.0); MCH 32.1 pg (26.0-34.0); MCHC 33.6 g/dL (28.0-37.0); MCV 95.5 fL (80.0-100.0); MONOCYTES 17.3 %; MPV 9.8 fl. (7.2-11.1); NUCLEATED RBCS 0 /100WBC; POLYS 46.1 %; RBC 3.13 mil/uL (4.50-6.00); RDW-CV 12.7 % (10.5-14.5); WBC 3.3 thou/uL (4.0-11.0)
[2021-04-23 13:59] LABS: PLATELET COUNT* 32 thou/uL (150-400)
[2021-04-23 20:00] VITALS: BP 102/57
[2021-04-24 04:00] VITALS: BP 133/49
[2021-04-24 07:52] VITALS: BP 118/54
[2021-04-24 08:00] LABS: MCH 31.7 pg (26.0-34.0); NUCLEATED RBCS 0 /100WBC; WBC 3.2 thou/uL (4.0-11.0)
[2021-04-24 08:02] LABS: ABSOLUTE MONOCYTES 0.6 thou/uL (0.0-1.2); ABSOLUTE NEUTROPHILS 1.6 thou/uL (1.6-8.1); BASOPHILS 0.5 %; EOSINOPHILS 0.1 %; HEMATOCRIT 27.6 % (42.0-52.0); HEMOGLOBIN 9.5 gm/dL (14.0-18.0); LYMPHOCYTES 31.2 %; MCHC 34.3 g/dL (28.0-37.0); MCV 92.6 fL (80.0-100.0); MONOCYTES 17.3 %; POLYS 50.9 %; RBC 2.98 mil/uL (4.50-6.00); RDW-CV 12.8 % (10.5-14.5)
[2021-04-24 08:07] LABS: PLATELET COUNT* 31 thou/uL (150-400)
[2021-04-24 08:10] LABS: CALCIUM 8.4 mg/dL (8.5-10.1); CREATININE 1.8 mg/dL (0.6-1.3); POTASSIUM 3.8 mmol/L (3.5-5.1)
[2021-04-24 12:03] VITALS: BP 117/50
[2021-04-24 16:00] VITALS: BP 126/54
[2021-04-24 22:06] LABS: HEMOGLOBIN 10.3 g/dL (13.0-17.7)
[2021-04-25] VITALS: BP 127/45
[2021-04-25 04:18] LABS: ABSOLUTE LYMPHOCYTES 1.4 thou/uL (0.8-5.3); ABSOLUTE MONOCYTES 0.6 thou/uL (0.0-1.2); ABSOLUTE NEUTROPHILS 1.5 thou/uL (1.6-8.1); BASOPHILS 0.2 %; EOSINOPHILS 0.2 %; HEMATOCRIT 25.8 % (42.0-52.0); HEMOGLOBIN 8.8 gm/dL (14.0-18.0); LYMPHOCYTES 38.9 %; MCH 32.2 pg (26.0-34.0); MCHC 34.1 g/dL (28.0-37.0); MCV 94.3 fL (80.0-100.0); MONOCYTES 16.3 %; MPV 9.2 fl. (7.2-11.1); NUCLEATED RBCS 0 /100WBC; POLYS 44.4 %; RBC 2.74 mil/uL (4.50-6.00); RDW-CV 12.7 % (10.5-14.5); WBC 3.5 thou/uL (4.0-11.0)
[2021-04-25 04:42] LABS: ALBUMIN 2.3 g/dL (3.4-5.0); CREATININE 1.5 mg/dL (0.6-1.3); POTASSIUM 3.5 mmol/L (3.5-5.1); TOTAL BILIRUBIN 0.2 mg/dL (<0.1-1.0); TOTAL PROTEIN 5.6 g/dL (6.4-8.2)
[2021-04-25 06:34] LABS: PLATELET COUNT* 30 thou/uL (150-400)
[2021-04-25 08:05] VITALS: BP 129/49
[2021-04-25 12:36] VITALS: BP 120/49
[2021-04-25 20:00] VITALS: BP 124/53
[2021-04-26 08:00] VITALS: BP 137/62
--- NOTE | 2021-04-26 09:23 | CON ---
[address] [address] CONSULTATION Name: JANELLE MAHTEW Room: [address] IN M.R.#: [id number] Admission: 04/22/21 Attend Phys: Krysten Francois Discharge: Date of : 62 Report #: [id number] THIS REPORT FOR: cc: Doreen Martell Maggie M. DO Vasudeva, Amita MD ~ DATE OF CONSULTATION: 04/23/2021 NEPHROLOGY CONSULTATION CONSULTING PHYSICIAN: Zahira Segura MD REASON FOR NEPHROLOGY CONSULTATION: Acute kidney injury. REASON FOR ADMISSION: Altered mental status. HISTORY OF PRESENT ILLNESS: This is a 60-year-old male with history of developmental delay, lives with his 90-year-old mom was brought in from home because mom could not help him out of bed and he was slow to respond. His creatinine was found to be 4.5 and he was found to be dehydrated. In addition to the medications he takes lisinopril, hydrochlorothiazide, Echinacea, Lasix at home. His blood pressure was also low 80s systolic when EMS brought him in. He has a creatinine of 1.0. He had a creatinine of 1.1 in 02/2021. He has had acute kidney injury in the past as well in February of last year at [facility] when he was dehydrated. His platelet count is also low, but it has been low in the past as well. He is negative for COVID-19 infection. He does not have a UTI. When I saw him this morning, he was sleeping comfortably. REVIEW OF SYSTEMS: As mentioned in history of present illness and could not obtain detailed review of systems because he was resting comfortably. ALLERGIES: None. PAST MEDICAL AND SURGICAL HISTORY: Include acute kidney injury, developmental delay, history of seizure disorder, urinary incontinence, hypertension. PAST SURGICAL HISTORY: The patient was unable to provide. HOME MEDICATIONS: Include folic acid, potassium chloride, simvastatin, primidone, oxybutynin, phenytoin, levothyroxine, cholecalciferol, ascorbic acid, cyanocobalamin, Echinacea extract, furosemide, lamotrigine, lisinopril, hydrochlorothiazide and valproic acid. FAMILY HISTORY: The patient is not able to [place] [address] CONSULTATION Name: JANELLE MATHEW Room: [address]#: [id number] Admission: 04/22/21 Attend Phys: Krysten Francois Discharge: Date of : 62 Report #: [id number] SOCIAL HISTORY: Does not smoke, drink alcohol or use illicit drugs. Lives at home with his 90-year-old mom. PHYSICAL EXAMINATION: VITAL SIGNS: Blood pressure is 114/40, pulse ox 97% on room air, temperature is 36.8, pulse rate 71, respiratory rate is 15. GENERAL: He is sleeping comfortably. HEAD AND EYES: Atraumatic, normocephalic. Conjunctivae normal. EARS, NOSE AND THROAT: Normal ears and nose. Mucous membranes could not be assessed. NECK: No JVD noted. CHEST: Bilaterally clear to auscultation anteriorly. No crackles. CARDIOVASCULAR: S1, S2 normal. No murmurs. ABDOMEN: Soft, nondistended. LOWER EXTREMITIES: There is nonpitting swelling, probably chronic for him. NEUROLOGICAL FUNCTION: He is currently resting. PSYCHIATRIC: Not able to assess. LABORATORY DATA: Hemoglobin is 9.7, platelet count is 34,000. Sodium is 136, potassium 3.7 and a BUN of 32, creatinine 3.5. Other labs were reviewed. IMAGING: Head CT and chest x-ray were reviewed. ASSESSMENT AND PLAN: 1. Acute kidney injury in the setting of volume depletion, use of lisinopril, hydrochlorothiazide, Lasix at home as well as hypotension. I am not sure if he is using any NSAIDs at home or not. Baseline creatinine is 1.1. He comes in with a creatinine of 4.5. We will check a renal ultrasound. UA looked pretty much unremarkable with trace blood, but no RBCs identified. 2. Volume depletion. 3. History of seizures. 4. History of developmental delay and came in with some altered mental status. 5. Thrombocytopenia, acute on chronic. We will defer to Internal Medicine for management. 6. Hypotension. Blood pressure has been towards the lower side. We will hold off on blood pressure medication right now. 7. Metabolic alkalosis. 8. Anemia. PLAN: 1. From nephrology standpoint, continue IV fluids, check labs today. Let us know if creatinine is not improving. 2. I have ordered a renal ultrasound. 3. Strict I's and O's. [address] [address] CONSULTATION Name: JANELLE MATHEW Room: M.230-P ADM IN M.R.#: [id number] Admission: 04/22/21 Attend Phys: Krysten Francois Discharge: Date of : 62 Report #: [id number] 4. Avoid hypotension. Keep MAP 65-70. Avoid nephrotoxic agents and IV iodinated contrast. 5. Keep lisinopril, hydrochlorothiazide, Lasix on hold. Use of herbal supplements can cause allergic reaction and chronic kidney injury. Would not recommend using Echinacea extract. Thank you for this consultation. I will continue to follow with you and check morning labs as well. <ELECTRONICALLY SIGNED> By: Ashlee Marques MD 04/26/21 0923 0810 [id number] Marques MD /nt
[2021-04-26 11:40] VITALS: BP 125/54
[2021-04-26 11:47] VITALS: BP 125/54
[2021-04-26 15:07] LABS: FREE PHENYTOIN 2.2 ug/mL (1.0-2.0)
[2021-04-27 09:08] LABS: TOTAL PHENYTOIN 9.6 ug/mL (10.0-20.0)
== END 2021-04-26 12:20 | disposition home or self-care (01) | DRG 682 ==
LOC: M.ERS 16:42 → M.TBA-ER 18:28 → M.2W 04-23 10:30
PROVIDERS: Emergency Medicine; Internal Medicine; Internal Medicine Hematology & Oncology; ADMIT Internal Medicine; ATTEND Internal Medicine
DX: N17.0 Acute kidney failure with tubular necrosis (principal); G93.41 Metabolic encephalopathy; E87.2 Acidosis; D61.818 Other pancytopenia; E87.3 Alkalosis; Z20.822 Contact with and (suspected) exposure to COVID-19; G93.89 Other specified disorders of brain; G40.909 Epilepsy, unspecified, not intractable, without status epilepticus; E86.9 Volume depletion, unspecified; I95.9 Hypotension, unspecified; E03.9 Hypothyroidism, unspecified; I12.9 Hypertensive chronic kidney disease with stage 1 through stage 4 chronic kidney disease, or unspecified chronic kidney disease; R25.1 Tremor, unspecified; N18.9 Chronic kidney disease, unspecified; E86.0 Dehydration; Z87.891 Personal history of nicotine dependence

== ENCOUNTER 2021-04-30 15:27 | Observation (INO) | payer OTHER, MEDICAID ==
[~2021-04-30] VITALS: Ht 170.2 cm; Wt 90.7 kg
[2021-04-30 15:42] VITALS: BP 97/42
[2021-04-30 18:34] LABS: URINE BILIRUBIN NEGATIVE (Negative); URINE BLOOD NEGATIVE (Negative); URINE CLARITY CLEAR; URINE COLOR YELLOW; URINE GLUCOSE-RANDOM NEGATIVE (Negative); URINE KETONES NEGATIVE (Negative); URINE LEUKOCYTES-REFLEX NEGATIVE (Negative); URINE NITRITE-REFLEX NEGATIVE (Negative); URINE PROTEIN NEGATIVE (Negative); URINE UROBILINOGEN 0.2 E.U./dl (0.2-1.0)
[2021-04-30 19:42] LABS: CREATININE 1.7 mg/dL (0.6-1.3); POTASSIUM 3.5 mmol/L (3.5-5.1)
[2021-04-30 19:47] LABS: TOTAL BILIRUBIN 0.2 mg/dL (<0.1-1.0); TOTAL PROTEIN 6.3 g/dL (6.4-8.2)
[2021-04-30 19:52] LABS: HEMATOCRIT 26.5 % (42.0-52.0); MCH 31.8 pg (26.0-34.0); MCHC 33.8 g/dL (28.0-37.0); MPV 8.8 fl. (7.2-11.1); NUCLEATED RBCS 0 /100WBC; PLATELET COUNT* 63 thou/uL (150-400); RBC 2.82 mil/uL (4.50-6.00); RDW-CV 13.2 % (10.5-14.5); WBC 6.2 thou/uL (4.0-11.0)
[2021-04-30 20:15] LABS: ABSOLUTE MONOCYTES 0.9 thou/uL (0.0-1.2); ABSOLUTE NEUTROPHILS 3.3 thou/uL (1.6-8.1); ATYPICAL LYMPHS 3 %; PLATELET ESTIMATE DECREASED
[2021-05-01 01:59] VITALS: BP 112/53
[2021-05-01 05:44] VITALS: BP 106/31
[2021-05-01 09:32] LABS: CALCIUM 7.7 mg/dL (8.5-10.1); CREATININE 1.3 mg/dL (0.6-1.3)
[2021-05-01 09:35] LABS: MAGNESIUM 1.7 mg/dL (1.8-2.4); PHOSPHORUS* 3.1 mg/dL (2.5-4.9)
[2021-05-01 09:37] LABS: POTASSIUM 2.9 mmol/L (3.5-5.1)
[2021-05-01 09:45] VITALS: BP 120/30
--- NOTE | 2021-05-01 12:27 | EKG ---
[place] [address] ELECTROCARDIOGRAM REPORT Name: JANELLE MATHEW Room: [address]#: [id number] Admission: 04/30/21 Attend Phys: Ismael Garcia Discharge: Date of : 62 Date of Service: 04/30/211829 Report #: [id number] THIS REPORT FOR: //name// [facility] ED Test Date: 2021-04-30 Test Time: 18:30:56 Pat Name: JANELLE MATHEW Department: Room: [facility] Gender: M Personnel Security Specialist: : 1960 Requested By: Dalton Viera Order Number: [id number] MD: Jagjit Rogers Measurements Intervals [place] Rate: 74 P: MT: QRS: 17 QRSD: 87 T: 67 QT: 456 QTc: 506 Interpretive Statements Normal sinus rhythm Low voltage, precordial leads Abnormal R-wave progression, early transition Borderline T wave abnormalities Prolonged QT interval Compared to ECG 04/22/2021 16:47:53 AV block, advanced (high-grade) now present T-wave abnormality now present Prolonged QT interval now present Sinus rhythm no longer present Electronically Signed On 05-01-2021 12:27:18 PLATEN PRESS OPERATOR by Jagjit Rogers [email or web address] <ELECTRONICALLY SIGNED> By: Janet Rogers MD, [facility] 05/01/21 1227 29 29 Janet Rogers MD, [facility] /EPI
[2021-05-01 17:45] VITALS: BP 102/40
[2021-05-01 20:00] VITALS: BP 104/41
[2021-05-02] VITALS: BP 114/51
--- NOTE | 2021-05-02 02:40 | NUR ---
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 PT DID NOT WANT TO TAKE THE HEARING AIDS OUT FOR THE NIGHT AND TO HAVE A FAMILY MEMEBER TO BRING HIM A BATTERY LATER IN THE AM. PT SEEMED A LITTLE BIT MORE CONFUSED DURING THIS TIME. HE DOES NOT SEEM TO UNDERSTAND THAT NO ONE WAS GOING TO HIS HOME. THEN PT FOCUSED UPON GETTING OUT OF BED WITH PT SO THAT HE COULD GO HOME. DENIES DIZZINESS, VSS, AFEBRILE. SR PER MONITOR. WILL CONITNUE TO MONITOR.
[2021-05-02 04:00] VITALS: BP 131/70
[2021-05-02 11:03] VITALS: BP 131/70
[2021-05-02 12:48] VITALS: BP 131/70
--- NOTE | 2021-05-03 08:31 | NUR ---
ORDERS RECEIVED FOR P.T. PT DC'ED 05/02/20 PRIOR TO P.T. EVALUATION. LAUREN ZAVALETA, MPT
== END 2021-05-02 12:41 | disposition home or self-care (01) ==
LOC: M.ERS 15:27 → M.TBA-ER 21:56
PROVIDERS: Physician Assistant; ADMIT Internal Medicine; ATTEND Internal Medicine
DX: R42 Dizziness and giddiness (principal); Z20.822 Contact with and (suspected) exposure to COVID-19; G40.909 Epilepsy, unspecified, not intractable, without status epilepticus; E03.9 Hypothyroidism, unspecified; R25.1 Tremor, unspecified; F89 Unspecified disorder of psychological development; E86.0 Dehydration; R00.0 Tachycardia, unspecified; I95.9 Hypotension, unspecified; D69.6 Thrombocytopenia, unspecified; I12.9 Hypertensive chronic kidney disease with stage 1 through stage 4 chronic kidney disease, or unspecified chronic kidney disease; N18.9 Chronic kidney disease, unspecified; N17.9 Acute kidney failure, unspecified; D64.9 Anemia, unspecified; K92.1 Melena; Z87.891 Personal history of nicotine dependence

== ENCOUNTER 2021-05-15 09:52 | Inpatient (IN) | payer OTHER, MEDICAID ==
[~2021-05-15] VITALS: Ht 170.2 cm; Wt 106.1 kg
--- NOTE | ~2021-05-15 | EMS ---
[address] [address] EMS Patient Care Report Name: JANELLE MATHEW Room: [facility]#: [id number] Admission: 05/15/21 Attend Phys: Discharge: Date of : 62 Report #: [id number] THIS REPORT FOR: //name// Report Transmitted: 05/15/2021 09:50 EMS Care Summary [facility] [facility] Incident 22-0125 @ 05/15/2021 09:03 Incident Location [address] [place] [address] Patient BRAIN K PRIYANKA Male, 61 Years 1960 Patient Address [address] [place] [address] Patient History Hypertension (HTN),Past Traumatic Brain Injury,Hypothyroidism, Patient Allergies No known allergies, Patient Medications Lisinopril, Levothyroxine, Chief Complaint Weakness Disposition Transported No Lights/[place] Dispatch Reason Sick Person Transported To [facility] Narrative Dispatched to address noted after Utility 1 was on scene of a lift assisted that became a medical. Arrived at time noted and spoke with crews on scene. They stated that the [address] [address] EMS Patient Care Report Name: JANELLE MATHEW [id number] Admission: 05/15/21 Attend Phys: Discharge: Date of : 62 Report #: [id number] patient was on his knees near the bed for approximately 2 hours per family. Patient lives with his mother because he has a history of a traumatic brain injury. Patient is normally confused but family stated he has not been acting right. Per the mother, "He has been stupid since yesterday, about noon." Patient was found laying in the bed and felt hot to the touch. Patient had his eyes open and did not state any pain or shortness of breath. Family stated he has not been complaining of anything lately. Patient was on a NC that the other crews had placed because they obtained low O2 saturation readings. Patient was moved to a malka-mental health practitioner and then we carried him to the stretcher and buckled him in. Once in ambulance, vitals where taken at time noted. IV was started along with a 12 lead ECG and venous blood glucose. Patient was hypotensive as noted. No loss of consciousness noted throughout care. O2 was continued at rate noted. [facility] was chosen by family and transport was started. While en route, vitals where taken again and fluid was given as noted with little change to blood pressure. Radio report was given with a 10 minute ETA. Arrived and took patient to room 17. Patient was moved to the bed with the malka-mental health practitioner and RN was given verbal report. RN signed for patient and patient care. END REPORT EMT-P Nick Quintero Initial Vitals @09:25P: 100,R: 14,BP: 80/31,Pain: 0/10,GCS: 14,Glucose: 86,SpO2: 92,Revised Trauma: 11,SC Suspected: false @09:26P: 99,R: 16,BP: 73/29,Pain: 0/10,GCS: 14,SpO2: 99,Revised Trauma: 10,SC Suspected: false @09:36P: 95,R: 16,BP: 76/37,Pain: 0/10,GCS: 14,SpO2: 99,Revised Trauma: 11,SC Suspected: false @09:47P: 100,R: 16,BP: 83/36,Pain: 0/10,GCS: 14,SpO2: 99,Revised Trauma: 11,SC Suspected: false Impression Generalized Weakness Procedures @09:25 IV Therapy - Lactated Ringers 700cc (20 ga) Site: Antecubital-Left Response: UnchangedSucceeded @09:25 Oxygen FlowRate: 2 Device: Nasal Cannula (NC) Response: [place] [address] EMS Patient Care Report Name: JANELLE MATHEW Room: [facility]#: [id number] Admission: 05/15/21 Attend Phys: Discharge: Date of : 62 Report #: [id number] Timeline 08:43,Call Received 08:55,Initial Responder On Scene 09:03,Dispatched 09:04,En Route 09:14,On Scene 09:15,At Patient 09:25,IV Therapy - Lactated Ringers 700cc 20 ga Site: Antecubital-Left,Response: UnchangedSucceeded, 09:25,Oxygen FlowRate: 2 Device: Nasal Cannula (NC) Response: ImprovedSucceeded, 09:25,BP: 80/31 M,PULSE: 100,RR: 14 R,SPO2: 92 Ox,ETCO2: ,B,PAIN: 0,GCS: 14, 09:26,BP: 73/29 M,PULSE: 99,RR: 16 R,SPO2: 99 Ox,ETCO2: ,BG: ,PAIN: 0,GCS: 14, 09:29,Depart Scene 09:36,BP: 76/37 M,PULSE: 95,RR: 16 R,SPO2: 99 Ox,ETCO2: ,BG: ,PAIN: 0,GCS: 14, 09:47,BP: 83/36 M,PULSE: 100,RR: 16 R,SPO2: 99 Ox,ETCO2: ,BG: ,PAIN: 0,GCS: 14, 09:49,At Destination 09:52,Transfer Patient 10:19,Call Closed 10:19,In District Disclaimer v1.1 Copyright 2021 [employer] This EMS Care Summary contains data elements from the applicable legal record (which may be displayed differently). It is designed to provide pertinent information for the following purposes: continuity of care, clinical quality, and state data reporting. The complete legal record is available to ED staff and administrators of the receiving hospital in ES's Patient Tracker. All data is provided "as is."
--- NOTE | ~2021-05-15 | EMS ---
[address] [address] EMS Patient Care Report Name: JANELLE MAHTEW Room: [facility]#: [id number] Admission: 05/15/21 Attend Phys: Discharge: Date of : 62 Report #: [id number] THIS REPORT FOR: //name// Report Transmitted: 05/15/2021 10:54 EMS Care Summary [place] [employer] [facility] Incident 22-0125 @ 05/15/2021 09:03 Incident Location [address] [place] [address] Patient BRAIN K PRIYANKA Male, 61 Years 1960 Patient Address [address] [place] [address] Patient History Hypertension (HTN),Past Traumatic Brain Injury,Hypothyroidism, Patient Allergies No known allergies, Patient Medications Lisinopril, Levothyroxine, Chief Complaint Weakness Disposition Transported No Lights/[place] Dispatch Reason Sick Person Transported To [facility] Narrative Dispatched to address noted after Utility 1 was on scene of a lift assisted that became a medical. Arrived at time noted and spoke with crews on scene. They stated that the [address] [address] EMS Patient Care Report Name: JANELLE MATHEW [facility] [id number] Admission: 05/15/21 Attend Phys: Discharge: Date of : 62 Report #: [id number] patient was on his knees near the bed for approximately 2 hours per family. Patient lives with his mother because he has a history of a traumatic brain injury. Patient is normally confused but family stated he has not been acting right. Per the mother, "He has been stupid since yesterday, about noon." Patient was found laying in the bed and felt hot to the touch. Patient had his eyes open and did not state any pain or shortness of breath. Family stated he has not been complaining of anything lately. Patient was on a NC that the other crews had placed because they obtained low O2 saturation readings. Patient was moved to a malka-irrigation equipment remover and then we carried him to the stretcher and buckled him in. Once in ambulance, vitals where taken at time noted. IV was started along with a 12 lead ECG and venous blood glucose. Patient was hypotensive as noted. No loss of consciousness noted throughout care. O2 was continued at rate noted. [facility] was chosen by family and transport was started. While en route, vitals where taken again and fluid was given as noted with little change to blood pressure. Radio report was given with a 10 minute ETA. Arrived and took patient to room 17. Patient was moved to the bed with the malka-irrigation equipment remover and RN was given verbal report. RN signed for patient and patient care. END REPORT EMT-P Nick Quintero Initial Vitals @09:25P: 100,R: 14,BP: 80/31,Pain: 0/10,GCS: 14,Glucose: 86,SpO2: 92,Revised Trauma: 11,VA Suspected: false @09:26P: 99,R: 16,BP: 73/29,Pain: 0/10,GCS: 14,SpO2: 99,Revised Trauma: 10,VA Suspected: false @09:36P: 95,R: 16,BP: 76/37,Pain: 0/10,GCS: 14,SpO2: 99,Revised Trauma: 11,VA Suspected: false @09:47P: 100,R: 16,BP: 83/36,Pain: 0/10,GCS: 14,SpO2: 99,Revised Trauma: 11,VA Suspected: false Impression Generalized Weakness Procedures @09:25 IV Therapy - Lactated Ringers 700cc (20 ga) Site: Antecubital-Left Response: UnchangedSucceeded @09:25 Oxygen FlowRate: 2 Device: Nasal Cannula (NC) Response: [place] [address] EMS Patient Care Report Name: JANELLE MATHEW Room: [facility]#: [id number] Admission: 05/15/21 Attend Phys: Discharge: Date of : 62 Report #: [id number] Timeline 08:43,Call Received 08:55,Initial Responder On Scene 09:03,Dispatched 09:04,En Route 09:14,On Scene 09:15,At Patient 09:25,IV Therapy - Lactated Ringers 700cc 20 ga Site: Antecubital-Left,Response: UnchangedSucceeded, 09:25,Oxygen FlowRate: 2 Device: Nasal Cannula (NC) Response: ImprovedSucceeded, 09:25,BP: 80/31 M,PULSE: 100,RR: 14 R,SPO2: 92 Ox,ETCO2: ,B,PAIN: 0,GCS: 14, 09:26,BP: 73/29 M,PULSE: 99,RR: 16 R,SPO2: 99 Ox,ETCO2: ,BG: ,PAIN: 0,GCS: 14, 09:29,Depart Scene 09:36,BP: 76/37 M,PULSE: 95,RR: 16 R,SPO2: 99 Ox,ETCO2: ,BG: ,PAIN: 0,GCS: 14, 09:47,BP: 83/36 M,PULSE: 100,RR: 16 R,SPO2: 99 Ox,ETCO2: ,BG: ,PAIN: 0,GCS: 14, 09:49,At Destination 09:52,Transfer Patient 10:19,Call Closed 10:19,In District Disclaimer v1.1 Copyright 2021 [employer] This EMS Care Summary contains data elements from the applicable legal record (which may be displayed differently). It is designed to provide pertinent information for the following purposes: continuity of care, clinical quality, and state data reporting. The complete legal record is available to ED staff and administrators of the receiving hospital in ES's Patient Tracker. All data is provided "as is."
--- NOTE | ~2021-05-15 | EMS ---
[address] [address] EMS Patient Care Report Name: JANELLE MATHEW Room: [address] IN [facility]#: [id number] Admission: 05/15/21 Attend Phys: Carlos Valles Discharge: Date of : 62 Report #: [id number] THIS REPORT FOR: //name// Report Transmitted: 05/18/2021 10:06 EMS Care Summary [place] [employer] [facility] Incident 22-0125 @ 05/15/2021 09:03 Incident Location [address] [place] [address] Patient JANELLE MATHEW Male, 61 Years 1960 Patient Address [address] [place] [address] Patient History Hypertension (HTN),Past Traumatic Brain Injury,Hypothyroidism, Patient Allergies No known allergies, Patient Medications Lisinopril, Levothyroxine, Chief Complaint Weakness Disposition Transported No Lights/[place] Dispatch Reason Sick Person Transported To [facility] Narrative Dispatched to address noted after Utility 1 was on scene of a lift assisted that became a medical. Arrived at time noted and spoke with crews on scene. They stated that the [address] [address] EMS Patient Care Report Name: JANELLE MATHEW Room: [address] IN [facility]#: [id number] Admission: 05/15/21 Attend Phys: Carlos Valles Discharge: Date of : 62 Report #: [id number] patient was on his knees near the bed for approximately 2 hours per family. Patient lives with his mother because he has a history of a traumatic brain injury. Patient is normally confused but family stated he has not been acting right. Per the mother, "He has been stupid since yesterday, about noon." Patient was found laying in the bed and felt hot to the touch. Patient had his eyes open and did not state any pain or shortness of breath. Family stated he has not been complaining of anything lately. Patient was on a NC that the other crews had placed because they obtained low O2 saturation readings. Patient was moved to a malka-washer repairman and then we carried him to the stretcher and buckled him in. Once in ambulance, vitals where taken at time noted. IV was started along with a 12 lead ECG and venous blood glucose. Patient was hypotensive as noted. No loss of consciousness noted throughout care. O2 was continued at rate noted. [facility] was chosen by family and transport was started. While en route, vitals where taken again and fluid was given as noted with little change to blood pressure. Radio report was given with a 10 minute ETA. Arrived and took patient to room 17. Patient was moved to the bed with the malka-washer repairman and RN was given verbal report. RN signed for patient and patient care. END REPORT EMT-P Nick Quintero Initial Vitals @09:25P: 100,R: 14,BP: 80/31,Pain: 0/10,GCS: 14,Glucose: 86,SpO2: 92,Revised Trauma: 11,KS Suspected: false @09:26P: 99,R: 16,BP: 73/29,Pain: 0/10,GCS: 14,SpO2: 99,Revised Trauma: 10,KS Suspected: false @09:36P: 95,R: 16,BP: 76/37,Pain: 0/10,GCS: 14,SpO2: 99,Revised Trauma: 11,KS Suspected: false @09:47P: 100,R: 16,BP: 83/36,Pain: 0/10,GCS: 14,SpO2: 99,Revised Trauma: 11,KS Suspected: false Impression Generalized Weakness Procedures @09:25 IV Therapy - Lactated Ringers 700cc (20 ga) Site: Antecubital-Left Response: UnchangedSucceeded @09:25 Oxygen FlowRate: 2 Device: Nasal Cannula (NC) Response: [place] [address] EMS Patient Care Report Name: JANELLE MATHEW Room: [address] [place] [facility]#: [id number] Admission: 05/15/21 Attend Phys: Carlos Valles Discharge: Date of : 62 Report #: [id number] Timeline 08:43,Call Received 08:55,Initial Responder On Scene 09:03,Dispatched 09:04,En Route 09:14,On Scene 09:15,At Patient 09:25,IV Therapy - Lactated Ringers 700cc 20 ga Site: Antecubital-Left,Response: UnchangedSucceeded, 09:25,Oxygen FlowRate: 2 Device: Nasal Cannula (NC) Response: ImprovedSucceeded, 09:25,BP: 80/31 M,PULSE: 100,RR: 14 R,SPO2: 92 Ox,ETCO2: ,B,PAIN: 0,GCS: 14, 09:26,BP: 73/29 M,PULSE: 99,RR: 16 R,SPO2: 99 Ox,ETCO2: ,BG: ,PAIN: 0,GCS: 14, 09:29,Depart Scene 09:36,BP: 76/37 M,PULSE: 95,RR: 16 R,SPO2: 99 Ox,ETCO2: ,BG: ,PAIN: 0,GCS: 14, 09:47,BP: 83/36 M,PULSE: 100,RR: 16 R,SPO2: 99 Ox,ETCO2: ,BG: ,PAIN: 0,GCS: 14, 09:49,At Destination 09:52,Transfer Patient 10:19,Call Closed 10:19,In District Disclaimer v1.1 Copyright 2021 [employer] This EMS Care Summary contains data elements from the applicable legal record (which may be displayed differently). It is designed to provide pertinent information for the following purposes: continuity of care, clinical quality, and state data reporting. The complete legal record is available to ED staff and administrators of the receiving hospital in [employer]'s Patient Tracker. All data is provided "as is."
[2021-05-15 09:54] VITALS: BP 102/39
[2021-05-15 10:43] LABS: URINE BILIRUBIN NEGATIVE (Negative); URINE BLOOD NEGATIVE (Negative); URINE CLARITY CLEAR; URINE COLOR YELLOW; URINE GLUCOSE-RANDOM NEGATIVE (Negative); URINE KETONES NEGATIVE (Negative); URINE LEUKOCYTES-REFLEX NEGATIVE (Negative); URINE NITRITE-REFLEX NEGATIVE (Negative); URINE PROTEIN NEGATIVE (Negative); URINE UROBILINOGEN 0.2 E.U./dl (0.2-1.0)
[2021-05-15 11:05] LABS: HEMOGLOBIN 8.4 gm/dL (14.0-18.0)
[2021-05-15 11:07] LABS: MCH 31.8 pg (26.0-34.0); MCHC 33.6 g/dL (28.0-37.0); MCV 94.7 fL (80.0-100.0); NUCLEATED RBCS 0 /100WBC; PLATELET COUNT* 53 thou/uL (150-400); RBC 2.63 mil/uL (4.50-6.00); RDW-CV 13.1 % (10.5-14.5); WBC 8.7 thou/uL (4.0-11.0)
[2021-05-15 11:14] LABS: CALCIUM 7.8 mg/dL (8.5-10.1); CREATININE 3.8 mg/dL (0.6-1.3); POTASSIUM 3.6 mmol/L (3.5-5.1)
[2021-05-15 11:25] LABS: ALBUMIN 2.6 g/dL (3.4-5.0); TOTAL BILIRUBIN 0.5 mg/dL (<0.1-1.0); TOTAL PROTEIN 5.7 g/dL (6.4-8.2)
[2021-05-15 11:32] LABS: ABSOLUTE LYMPHOCYTES 0.6 thou/uL (0.8-5.3); ABSOLUTE MONOCYTES 1.7 thou/uL (0.0-1.2); ABSOLUTE NEUTROPHILS 6.3 thou/uL (1.6-8.1); BASOPHILS 0.4 %; MONOCYTES 19.8 %; PLATELET ESTIMATE DECREASED; POLYS 72.8 %
[2021-05-15 15:48] VITALS: BP 119/53
[2021-05-15 18:27] LABS: MAGNESIUM 2.3 mg/dL (1.8-2.4)
[2021-05-15 20:10] VITALS: BP 100/41
[2021-05-16 00:37] VITALS: BP 98/49
[2021-05-16 04:47] VITALS: BP 106/40
[2021-05-16 07:45] LABS: ABSOLUTE LYMPHOCYTES 0.9 thou/uL (0.8-5.3); ABSOLUTE MONOCYTES 1.5 thou/uL (0.0-1.2); ABSOLUTE NEUTROPHILS 4.5 thou/uL (1.6-8.1); BASOPHILS 0.3 %; HEMATOCRIT 25.1 % (42.0-52.0); HEMOGLOBIN 8.4 gm/dL (14.0-18.0); LYMPHOCYTES 13.4 %; MCH 31.7 pg (26.0-34.0); MCHC 33.6 g/dL (28.0-37.0); MCV 94.2 fL (80.0-100.0); MONOCYTES 21.4 %; MPV 9.3 fl. (7.2-11.1); NUCLEATED RBCS 0 /100WBC; POLYS 64.9 %; RBC 2.66 mil/uL (4.50-6.00); RDW-CV 12.9 % (10.5-14.5); WBC 6.9 thou/uL (4.0-11.0)
[2021-05-16 07:57] LABS: CALCIUM 7.9 mg/dL (8.5-10.1); POTASSIUM 3.1 mmol/L (3.5-5.1)
[2021-05-16 07:58] LABS: CREATININE 1.8 mg/dL (0.6-1.3)
[2021-05-16 08:00] VITALS: BP 112/44
[2021-05-16 09:22] LABS: PLATELET COUNT* 120 thou/uL (150-400); PLATELET ESTIMATE ADEQUATE
[2021-05-16 12:00] VITALS: BP 110/42
--- NOTE | 2021-05-16 13:14 | EKG ---
[place] [address] ELECTROCARDIOGRAM REPORT Name: JANELLE MATHEW Room: [address] IN ..#: [id number] Admission: 05/15/21 Attend Phys: Ismael Garcia Discharge: Date of : 62 Date of Service: 05/15/21 1200 Report #: [id number] THIS REPORT FOR: //name// [facility] ED Test Date: 2021-05-15 Test Time: 12:00:23 Pat Name: JANELLE MATHEW Department: Room: [facility] Gender: M Electro Mechanic: JUDIT : 1960 Requested By: Tonio Henriquez Order Number: [id number] MD: Georges Santana Measurements Intervals [place] Rate: 86 P: 143 SD: 142 QRS: 8 QRSD: 89 T: 123 QT: 325 QTc: 389 Interpretive Statements Sinus or ectopic atrial rhythm Low voltage, extremity and precordial leads Abnormal R-wave progression, early transition Nonspecific T abnormalities, lateral leads Compared to ECG 04/30/2021 18:30:56 Ectopic atrial rhythm now present Sinus rhythm no longer present Prolonged QT interval no longer present T-wave abnormality still present Electronically Signed On 05-16-2021 13:14:29 BURGLAR ALARM INSPECTOR by Georges Santana [email or web address] <ELECTRONICALLY SIGNED> By: Georges Santana MD, [facility] 05/16/21 1314 1200 1200 Georges Santana MD, [facility] /EPI
[2021-05-16 16:00] VITALS: BP 113/50
[2021-05-16 20:00] VITALS: BP 111/57
[2021-05-17 01:00] VITALS: BP 127/40
[2021-05-17 04:30] VITALS: BP 113/54
[2021-05-17 09:55] VITALS: BP 111/49
[2021-05-17 12:00] VITALS: BP 106/56
[2021-05-17 15:23] VITALS: BP 142/55
--- NOTE | 2021-05-17 16:50 | 2DMMODE ---
[place] [address] 2 D/M-MODE ECHOCARDIOGRAM Name: JANELLE MATHEW Room: [address] IN [facility]#: [id number] Admission: 05/15/21 Attend Phys: Ismael Garcia Discharge: Date of : 62 Date of Service: 05/17/21 1650 Report #: [id number] THIS REPORT FOR: cc: Doreen Martell Maggie M. DO Liston, Michael J. MD [facility] ~ APPROVED REPORT Study performed: 05/17/2021 13:58:43 EXAM: Comprehensive 2D, Doppler, and color-flow Echocardiogram Patient Location: In-Patient Room #: 210 BSA: 2.16 HR: 66 bpm BP: 113/54 mmHg Rhythm: NSR Other Information Study Quality: Good Indications Dyspnea 2D Dimensions IVSd: 9.84 (7-11mm) LVOT Diam: 17.80 (18-24mm) LVDd: 36.56 mm PWd: 8.10 (7-11mm) Ascending Ao: 29.45 (22-36mm) LVDs: 18.08 (25-40mm) Aortic Root: 30.23 mm Aortic Valve AoV Peak Uday.: 1.47 m/s AO Peak Gr.: 8.68 mmHg LVOT Max P.92 mmHg AO Mean Gr.: 5.32 mmHg LVOT Mean P.74 mmHg LVOT Max V: 1.22 m/s AO V2 VTI: 24.30 cm LVOT Mean V: 0.92 m/s JOAN (VTI): 2.81 cm2 LVOT V1 VTI: 27.41 cm Mitral Valve E/A Ratio: 1.17 MV Decel. Time: 160.53 ms MV E Max Uday.: 0.85 m/[place] [address] 2 D/M-MODE ECHOCARDIOGRAM Name: JANELLE MATHEW Room: [address] IN [facility].#: [id number] Admission: 05/15/21 Attend Phys: Ismael Garcia Discharge: Date of : 62 Date of Service: 05/17/21 1650 Report #: [id number] MV PHT: 46.55 ms MVA (PHT): 4.73 cm2 TDI E/Lateral E': 5.67 E/Medial E': 7.73 Medial E' Uday.: 0.11 m/s Lateral E' Uday.: 0.15 m/s Pulmonary Valve PV Peak Uday.: 1.55 m/s PV Peak Gr.: 9.56 mmHg Left Ventricle The left ventricle is normal size. There is normal LV segmental wall motion. There is normal left ventricular wall thickness. Left ventricular systolic function is normal. LVEF is 65-70%. Left ventricular filling pattern is normal for age. Right Ventricle The right ventricle is normal size. The right ventricular systolic function is normal. Atria The left atrium size is normal. The right atrium size is normal. Aortic Valve The aortic valve is normal in structure. No aortic regurgitation is present. There is no aortic valvular stenosis. Mitral Valve The mitral valve is normal in structure. There is no mitral valve regurgitation noted. No evidence of mitral valve stenosis. Tricuspid Valve The tricuspid valve is normal in structure. Trace tricuspid regurgitation. Pulmonic Valve The pulmonary valve is normal in structure. There is no pulmonic valvular regurgitation. Great Vessels The aortic root is normal in size. IVC is normal in size and collapses >50% with inspiration[place] [address] 2 D/M-MODE ECHOCARDIOGRAM Name: JANELLE MATHEW Room: [address]#: [id number] Admission: 05/15/21 Attend Phys: Ismael Garcia Discharge: Date of : 62 Date of Service: 05/17/21 1650 Report #: [id number] There is no pericardial effusion. <Conclusion> The left ventricle is normal size. There is normal left ventricular wall thickness. Left ventricular systolic function is normal. LVEF is 65-70%. Left ventricular filling pattern is normal for age. Trace tricuspid regurgitation. IVC is normal in size and collapses >50% with inspiration. <ELECTRONICALLY SIGNED> By: Georges Santana MD, FACC 05/17/211649 49 49 Georges Santana MD, FACC /INF
[2021-05-17 20:26] LABS: CALCIUM 8.3 mg/dL (8.5-10.1); CREATININE 1.5 mg/dL (0.6-1.3); POTASSIUM 3.3 mmol/L (3.5-5.1)
[2021-05-17 20:31] LABS: ALBUMIN 2.1 g/dL (3.4-5.0); TOTAL BILIRUBIN 0.3 mg/dL (<0.1-1.0); TOTAL PROTEIN 5.4 g/dL (6.4-8.2)
[2021-05-17 20:32] LABS: HEMATOCRIT 24.2 % (42.0-52.0); HEMOGLOBIN 8.1 gm/dL (14.0-18.0); MCH 31.8 pg (26.0-34.0); MCHC 33.6 g/dL (28.0-37.0); MCV 94.5 fL (80.0-100.0); MPV 9.5 fl. (7.2-11.1); NUCLEATED RBCS 0 /100WBC; RBC 2.56 mil/uL (4.50-6.00); RDW-CV 13.1 % (10.5-14.5); WBC 8.8 thou/uL (4.0-11.0)
[2021-05-17 20:33] VITALS: BP 93/43
[2021-05-17 20:33] LABS: PLATELET COUNT* 37 thou/uL (150-400)
[2021-05-17 21:18] LABS: ABSOLUTE LYMPHOCYTES 0.6 thou/uL (0.8-5.3); ABSOLUTE MONOCYTES 2.2 thou/uL (0.0-1.2)
[2021-05-17 21:20] LABS: PLATELET ESTIMATE DECREASED
[2021-05-18] VITALS (7 sets, daily range): BP systolic 90–150; BP diastolic 45–71
[2021-05-18 06:30] LABS: CALCIUM 8.3 mg/dL (8.5-10.1); CREATININE 1.5 mg/dL (0.6-1.3); POTASSIUM 3.9 mmol/L (3.5-5.1)
[2021-05-19] VITALS: BP 115/41
[2021-05-19 04:06] VITALS: BP 121/37
[2021-05-19 08:00] VITALS: BP 115/59
[2021-05-19 12:00] VITALS: BP 117/56
[2021-05-19 16:00] VITALS: BP 127/47
[2021-05-19 19:52] VITALS: BP 126/59
[2021-05-20 02:17] VITALS: BP 122/52
[2021-05-20 06:26] VITALS: BP 123/56
[2021-05-20 08:00] VITALS: BP 118/52
[2021-05-20 14:55] VITALS: BP 125/52
[2021-05-20 16:42] VITALS: BP 125/52
[2021-05-20 17:01] VITALS: BP 136/60
== END 2021-05-20 17:25 | disposition home health service (06) | DRG 177 ==
LOC: M.ERS 09:52 → M.TBA-ER 13:30 → M.2W 13:30
PROVIDERS: Internal Medicine; Internal Medicine Nephrology; Physician Assistant Medical; ADMIT Internal Medicine; ATTEND Internal Medicine
DX: J15.6 Pneumonia due to other Gram-negative bacteria (principal); N17.0 Acute kidney failure with tubular necrosis; J96.01 Acute respiratory failure with hypoxia; E87.2 Acidosis; Z20.822 Contact with and (suspected) exposure to COVID-19; I95.9 Hypotension, unspecified; D64.9 Anemia, unspecified; R74.01 Elevation of levels of liver transaminase levels; D69.6 Thrombocytopenia, unspecified; E87.6 Hypokalemia; G40.909 Epilepsy, unspecified, not intractable, without status epilepticus; E88.09 Other disorders of plasma-protein metabolism, not elsewhere classified; D75.9 Disease of blood and blood-forming organs, unspecified; I50.9 Heart failure, unspecified

== ENCOUNTER 2021-05-28 15:15 | Inpatient (IN) | payer OTHER, MEDICAID ==
[~2021-05-28] VITALS: Ht 170.2 cm; Wt 103.4 kg
[2021-05-28 15:18] VITALS: BP 93/41
[2021-05-28 15:37] LABS: URINE BILIRUBIN NEGATIVE (Negative); URINE BLOOD NEGATIVE (Negative); URINE CLARITY CLEAR; URINE COLOR YELLOW; URINE GLUCOSE-RANDOM NEGATIVE (Negative); URINE KETONES NEGATIVE (Negative); URINE LEUKOCYTES-REFLEX NEGATIVE (Negative); URINE NITRITE-REFLEX NEGATIVE (Negative); URINE PROTEIN NEGATIVE (Negative); URINE SPECIFIC GRAVITY 1.015 (1.005-1.030); URINE UROBILINOGEN 0.2 E.U./dl (0.2-1.0)
[2021-05-28 15:42] LABS: HEMATOCRIT 25.4 % (42.0-52.0); HEMOGLOBIN 8.6 gm/dL (14.0-18.0); MCH 31.9 pg (26.0-34.0); MCHC 33.7 g/dL (28.0-37.0); MCV 94.5 fL (80.0-100.0); MPV 7.5 fl. (7.2-11.1); NUCLEATED RBCS 0 /100WBC; PLATELET COUNT* 124 thou/uL (150-400); RBC 2.69 mil/uL (4.50-6.00); RDW-CV 13.7 % (10.5-14.5); WBC 7.7 thou/uL (4.0-11.0)
[2021-05-28 15:50] LABS: CALCIUM 7.7 mg/dL (8.5-10.1); CREATININE 2.5 mg/dL (0.6-1.3)
[2021-05-28 16:01] LABS: ALBUMIN 2.5 g/dL (3.4-5.0); TOTAL BILIRUBIN 0.3 mg/dL (<0.1-1.0); TOTAL PROTEIN 5.8 g/dL (6.4-8.2)
[2021-05-28 16:06] LABS: ABSOLUTE EOSINOPHILS 0.1 thou/uL (0.0-0.7); ABSOLUTE LYMPHOCYTES 1.2 thou/uL (0.8-5.3); ABSOLUTE NEUTROPHILS 5.4 thou/uL (1.6-8.1); PLATELET ESTIMATE ADEQUATE
[2021-05-28 17:50] VITALS: BP 85/44
[2021-05-28 21:09] VITALS: BP 74/43
[2021-05-28 22:55] VITALS: BP 90/28
[2021-05-29] VITALS (8 sets, daily range): BP systolic 90–111; BP diastolic 37–66
[2021-05-29 04:14] LABS: HEMATOCRIT 22.9 % (42.0-52.0); HEMOGLOBIN 7.7 gm/dL (14.0-18.0); MCH 31.3 pg (26.0-34.0); MCHC 33.6 g/dL (28.0-37.0); MCV 93.2 fL (80.0-100.0); RBC 2.45 mil/uL (4.50-6.00); RDW-CV 13.5 % (10.5-14.5); WBC 3.9 thou/uL (4.0-11.0)
[2021-05-29 04:30] LABS: CALCIUM 7.2 mg/dL (8.5-10.1); CREATININE 1.6 mg/dL (0.6-1.3); POTASSIUM 3.3 mmol/L (3.5-5.1)
[2021-05-29 04:35] LABS: ALBUMIN 1.9 g/dL (3.4-5.0); MAGNESIUM 1.7 mg/dL (1.8-2.4); TOTAL BILIRUBIN 0.3 mg/dL (<0.1-1.0); TOTAL PROTEIN 4.7 g/dL (6.4-8.2)
--- NOTE | 2021-05-29 08:43 | NUR ---
PT MOVED TO INPATIENT BED FOR COMFORT WITH A SERGIO IN PLACE AND A URINAL AT BEDSIDE. PT ATE SMALL AMOUNT OF BREAKFAST AND HAS NO COMPLAINTS OR NEEDS AT THIS TIME.
--- NOTE | 2021-05-29 08:49 | NUR ---
ORTHOSTATICS AT 0827, LAYING POSITION: BP 107/45, HR 79, SITTING POSITION: 110/53, HR 84. PT UNABLE TO STAND.
--- NOTE | 2021-05-29 09:25 | NUR ---
PER DR. AGUILAR, DISCONTINUE SODIUM CHLORIDE, MAKE SURE THE PATIENT HAS WATER READIILY AVAILABLE TO DRINK AT BEDSIDE, 3 MEALS A DAY AND PT TO BE PLACED INTO A FACILITY HE CANNOT CARE FOR HIMSELF AT HOME. WATER WAS TAKEN TO THE PATIENT AND CALL LIGHT IS WITHIN REACH. DR. AGUILAR' ORDERS WERE TOLD TO THE PATIENT AND HE VERBALIZED UNDERSTANDING.
--- NOTE | 2021-05-29 11:00 | EKG ---
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 : 1960 Requested By: Jose Alberto Caro Order Number: [id number] MD: Sanju Stinson Measurements Intervals Hubbard Rate: 80 P: 48 ME: 176 QRS: 6 QRSD: 75 T: 39 QT: 447 QTc: 516 Interpretive Statements Sinus rhythm Low voltage, precordial leads Abnormal R-wave progression, early transition Prolonged QT interval Compared to ECG 05/15/2021 12:00:23 Prolonged QT interval now present Ectopic atrial rhythm no longer present T-wave abnormality no longer present Electronically Signed On 05-29-2021 11:00:13 [employer] by Sanju Stinson [email or web address] <ELECTRONICALLY SIGNED> By: Sanju Stinson MD, [facility] 05/29/21 1100 1527 1527 Sanju Stinson MD, [facility] /EPI
--- NOTE | 2021-05-29 18:54 | NUR ---
PT TRANSFERRED TO FLOOR FROM ED AT APPROX 1530. PT IS A&OX4 AND SPEAKS SLOWLY BUT CLEAR. ASSESSMENT COMPLETED, VSS AND PT HAS A HX OF LOW BP'S. ATTEMPTED TO OBTAIN ORTHOSTATIC PRESSURES BUT PT RESTING AND REFUSED TO STAND, WILL REATTEMPT. PT ORIENTED TO ROOM. PT HEELS OFFLOADED. TUBI PORCELAIN SLUSHER PLACED ON BLE. SAFETY MEASURES IN PLACE.
[2021-05-30] VITALS (8 sets, daily range): BP systolic 91–107; BP diastolic 40–52
[2021-05-30 03:59] LABS: HEMATOCRIT 23.4 % (42.0-52.0); HEMOGLOBIN 7.8 gm/dL (14.0-18.0); MCH 31.3 pg (26.0-34.0); MCHC 33.2 g/dL (28.0-37.0); MCV 94.2 fL (80.0-100.0); MPV 7.7 fl. (7.2-11.1); RBC 2.48 mil/uL (4.50-6.00); RDW-CV 13.7 % (10.5-14.5); WBC 4.5 thou/uL (4.0-11.0)
--- NOTE | 2021-05-30 04:00 | NUR ---
PT A&OX4, DEVELOPMENTAL DELAY, VSS ON ROOM AIR, IV SALINE LOCKED. NO CO PAIN OR DISCOMFORT. PT SLEEPING WELL, WILL CONTINUE TO MONITOR.
[2021-05-30 04:32] LABS: ALBUMIN 1.9 g/dL (3.4-5.0); CALCIUM 7.4 mg/dL (8.5-10.1); MAGNESIUM 1.8 mg/dL (1.8-2.4); POTASSIUM 3.5 mmol/L (3.5-5.1); TOTAL BILIRUBIN 0.2 mg/dL (<0.1-1.0); TOTAL PROTEIN 4.9 g/dL (6.4-8.2)
[2021-05-31] VITALS: BP 112/58
[2021-05-31 03:36] VITALS: BP 94/43
--- NOTE | 2021-05-31 04:34 | NUR ---
PT A&OX4, DEVELOPMENTAL DELAY. VSS ON ROOM AIR, IV SALINE LOCKED, SR ON TELE MONITOR. REPOSTIONED Q2H. UP WITH ASSIST. NO CO PAIN OR DISCOMFORT. PT SLEEPING WELL, WILL CONTINUE TO MONITOR.
[2021-05-31 05:16] LABS: HEMATOCRIT 25.1 % (42.0-52.0); HEMOGLOBIN 8.4 gm/dL (14.0-18.0); MCH 31.6 pg (26.0-34.0); MCHC 33.3 g/dL (28.0-37.0); MCV 95.1 fL (80.0-100.0); MPV 7.9 fl. (7.2-11.1); RBC 2.64 mil/uL (4.50-6.00); RDW-CV 13.4 % (10.5-14.5); WBC 5.6 thou/uL (4.0-11.0)
[2021-05-31 05:46] LABS: CALCIUM 7.6 mg/dL (8.5-10.1); MAGNESIUM 1.6 mg/dL (1.8-2.4); TOTAL BILIRUBIN 0.3 mg/dL (<0.1-1.0)
[2021-05-31 09:18] VITALS: BP 95/44
[2021-05-31 11:59] VITALS: BP 98/44
[2021-05-31 15:14] VITALS: BP 98/44
--- NOTE | 2021-05-31 16:58 | NUR ---
CM ASSESSMENT: PT IS KNOWN TO THIS CM FROM PREVIOUS ADMISSIONS. PT IS A RE-ADMIT THAT HAD D/C'S 05/20/21 HOME WITH MOTHER AND BROTHER. PT'S BROTHER HAD REQUEST CM ASSIST WITH SNF/LTC PLACEMENT, BUT THIS WAS DENIED. PT IS MORE APPROPRIATE FOR [facility]. PREVIOUS CM PROVIDED PT'S BROTHER WITH INFO FOR THE [place] [facility] OF DEVELOPMENTAL DISABILITIES, AND INFO FOR PRIVATE DUTY CARE AND HOW TO ARRANGE THIS WITH MEDICAID. CM SPOKE TO THE PT'S SON ABOTU THIS AND HE INFORMS THAT HE HAD NOT HAD TIME TO FOLLOW THROUGH WITH ANY OF THOSE THINGS. CM EXPLANINED THE IMPORTANCE OF FOLLOWING THROUGH WITH THESE CM RECOMMEDATIONS THIS IS THE ONLY AVAILABLE OPTION FOR THE PT. PT'S BROTHER EXPRESSED UNDERSTANDING. CM WILL REMAIN AVAILABLE TO ASSIST AND FOLLOW NEEDED.
== END 2021-05-31 15:30 | disposition home or self-care (01) | DRG 682 ==
LOC: M.ERS 15:15 → M.TBA-ER 17:12 → M.2W 17:12 → M.TBA-ER 05-29 08:40 → M.2W 05-29 13:53
PROVIDERS: Family Medicine; ADMIT Internal Medicine; ATTEND Internal Medicine
DX: N17.9 Acute kidney failure, unspecified (principal); R65.11 Systemic inflammatory response syndrome (SIRS) of non-infectious origin with acute organ dysfunction; G40.909 Epilepsy, unspecified, not intractable, without status epilepticus; E03.9 Hypothyroidism, unspecified; E87.6 Hypokalemia; E86.0 Dehydration; D64.9 Anemia, unspecified; I87.8 Other specified disorders of veins; Z20.822 Contact with and (suspected) exposure to COVID-19; I95.9 Hypotension, unspecified; Z79.899 Other long term (current) drug therapy